=== PATIENT | male | born 1985 | race Caucasian/White ===

== ENCOUNTER 2016-12-29 18:15 | Emergency (ER) | payer MEDICARE, MEDICAID ==
[2016-12-29] MEDS ORDERED: NS 0.9% 1000 ML* 1,000 ML IV ONE (20:53)
[2016-12-29] MEDS ORDERED: Ondansetron INJ* 2 MG/ML VIAL IV ONE (20:53)
[2016-12-29 21:02] LABS: Hematocrit 40 % (42-52); Hemoglobin 13.2 g/dl (14.0-18.0); Mean Corpuscular HGB Conc 33 g/dl (31-36); Mean Corpuscular Hemoglobin 31 pg (27-31); Mean Corpuscular Volume 92 fL (80-94); Mean Platelet Volume 8 um3 (7.4-10.4); Red Cell Distribution Width 15 % (10.5-15); White Blood Count 11.8 10^3/ul (3.5-10.8)
[2016-12-29 21:13] LABS: Albumin 4.1 g/dL (3.2-5.2); Calcium 10.1 mg/dL (8.6-10.3); EGFR African American 430.3 (>60); EGFR Non-African American 334.6 (>60); Globulin 3.3 g/dL (2-4); Magnesium 2.1 mg/dL (1.9-2.7); Total Bilirubin 0.3 mg/dL (0.2-1.0); Total Protein 7.4 g/dL (6.4-8.9)
[2016-12-29 21:28] LABS: Urine Bilirubin Negative (Negative); Urine Glucose Negative (Negative); Urine Nitrite Negative (Negative)
[2016-12-29] MEDS: Al Hydrox/Mg Hydrox/Simet LIQ* 30 ML UDC PO ONE ×2 (21:42→21:49)
[2016-12-29] MEDS: Lidocaine 2% VISCOUS* 15 ML UDC PO ONE ×2 (21:42→21:49)
[2016-12-29] MEDS ORDERED: oxyCODONE/Acetamin 5/325 MG* TAB PO ONE (21:51)
[2016-12-29 22:10] VITALS: BP 135/87
== END 2016-12-29 22:09 | disposition home or self-care (01) ==
LOC: ED 18:15
DX: R10.9 Unspecified abdominal pain (principal)
CPT/HCPCS: 36415; 80053; 81003; 83690; 83735; 85025; 96361; 96374; 99283; A9270-GY; J2405

== ENCOUNTER 2017-03-24 17:25 | Emergency (ER) | payer MEDICARE, MEDICAID ==
--- NOTE | 2017-03-24 19:16 | ED ---
Psychiatric Complaint - HPI Summary HPI Summary: Pt here w/ anxiety and depression about progressively worsening chronic pain d/ t muscular dystrophy. He feels guilty about taking narcotics which worked well in the past but he stopped d/t stigma of taking it. Transitioned to suboxone which worked well but stopped because provider in [place] stopped rx'ing all of a sudden. He takes klonopin and clonidine for anxiety - feels they help each other work however some days he takes more klonopin than rx'd (rx'd 3mg daily PRN - he has taken up to 8mg). His acute anxiety presents as SOB, chest pain and extreme anger. He feels suicidal at times but states "I would never hurt my loved ones like that". Sx are exacerbated lately by insomnia and pt not eating - only drinking coffee - as again, he is depressed and anxious. Denies ab pain other than "hunger pain" at this time - offered food but he wants to continue to drink water and coffee only. MD pain presents in his spine and Rt hip - feels this was worsening at a pace of every other year, but in the past few years has been progressing q 8 months. 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 Quality of life is poor at this time, frustrated. Followed by Dr. Chambers - just received a pain rx for medical marijuana but admits he's tried someone else's before and it didn't work so has not filled this yet (was rx'd 02/21/2017). Linked w/ neurologist in [place]. Has tried multiple medications in the past but reports most of them make him feel drunk (ie. gabapentin, lyrica, etc) - doesn't want to feel drunk, fuzzy or unclear. Currently is not linked w/ psychiatric medicine. - History Of Current Complaint Chief Complaint: EDMentalHealth Time Seen by Provider: 03/24/17 18:11 Hx Obtained From: Patient, Family/Entry Level Manufacturing Engineer - father - Allergies/Home Medications Allergies/Adverse Reactions: Allergies Allergy/AdvReac Type Severity Reaction Status Date / Time No Known Allergies Allergy Verified 12/29/16 19:36 Home Medications: Home Medications Ibuprofen TAB* [Advil TAB*] 200 mg PO Q6H PRN 03/24/17 [History Confirmed ] cloNIDine TAB* [Catapres 0.1 MG TAB*] 0.1 mg PO TID 03/24/17 [History Confirmed 03/24/17] PMH/Surg Hx/FS Hx/Imm Hx Previously Healthy: No - progressively worsening muscular dystrophy Endocrine/Hematology History: Denies: Hx Anticoagulant Therapy, Hx Diabetes, Hx Thyroid Disease Cardiovascular History: Denies: Hx Congestive Heart Failure, Hx Hypertension, Hx Pacemaker/ICD Respiratory History: Denies: Hx Asthma, Hx Chronic Obstructive Pulmonary Disease (COPD) History: Denies: Hx Dialysis, Hx Renal Disease Musculoskeletal History: Reports: Hx Osteoporosis, Other Musculoskeletal History - MUSCULAR DYSTROPHY Sensory History: Denies: Hx Hearing Aid Neurological History: Denies: Hx Dementia, Hx Seizures Comment Only: Other Neuro Impairments/Disorders - MUSCL. DYST Psychiatric History: Denies: Hx Eating Disorder, Hx Panic Disorder, Hx Substance Abuse - Surgical History Surgery Procedure, Year, and Place: fx rt tib-fib with hardware 2010 - Immunization History Date of Tetanus Vaccine: PT STATES UNSURE Date of Influenza Vaccine: NONE Infectious Disease History: No Infectious Disease History: Denies: Hx Hepatitis, Hx Human Immunodeficiency Virus (HIV), Traveled Outside the [place] in Last 30 Days - Family History Known Family History: Positive: Diabetes, Other - depression - Social History Occupation: Disabled Alcohol Use: None Substance Use Type: Reports: Marijuana Substance Use Comment - Amount & Last Used: medical marijuana Hx Tobacco Use: Yes Smoking Status (MU): Current Every Day Smoker Review of Systems Positive: Fatigue. Negative: Fever, Chills ENT: Negative Cardiovascular: Negative Negative: Palpitations, Chest Pain Respiratory: Negative Negative: Shortness Of Breath, Cough Negative: Abdominal Pain, Vomiting, Diarrhea, Nausea Genitourinary: Negative Negative: burning, dysuria, frequency Musculoskeletal: Other - see HPI Skin: Negative Neurological: Other - see HPI Positive: Anxious - agitated but cooperative and polite Physical Exam Triage Information Reviewed: Yes Vital Signs On Initial Exam: Initial Vitals Temp Pulse Resp BP Pulse Ox 98.9 F 74 20 111/94 99 03/24/17 17:32 03/24/17 17:32 03/24/17 17:32 03/24/17 17:32 03/24/17 17:32 Vital Signs Reviewed: Yes Appearance: Positive: Pain Distress - pt is sitting on stretcher, leaning forward at times and to the side at other times - appears to have mildly slurred speech (admits he's taken more klonopin than directed today) - appears to be in mild to moderate pain, can't get comfortable Skin: Positive: Warm, Dry Head/Face: Positive: Normal Head/Face Inspection Eyes: Positive: Normal, EOMI ENT: Positive: Hearing grossly normal Neck: Positive: Supple Respiratory/Lung Sounds: Positive: Clear to Auscultation, Breath Sounds Present. Negative: Rales, Rhonchi, Wheezes Cardiovascular: Positive: Normal, RRR, S1, S2 Abdomen Description: Positive: Nontender, No Organomegaly, Soft Bowel Sounds: Positive: Present Musculoskeletal: Positive: Other - legs appear slender and pt does not move LE' s - moving torso and UE's well Neurological: Positive: Alert, Oriented to Person Place, Time, CN Intact II- III. Negative: Sensory/Motor Intact - LE's w/ limited ROM Psychiatric: Positive: Anxious - agitated but cooperative and polite - appears frustrated and to have good insight other than having guilt about taking medications to improve his quality of life - Sue Coma Scale Coma Scale Total: 15 Diagnostics - Vital Signs Vital Signs Temp Pulse Resp BP Pulse Ox 03/24/17 18:23 98.1 F 79 18 120/76 100 03/24/17 17:32 98.9 F 74 20 111/94 99 - Laboratory Result Diagrams: 03/24/17 19:55 03/24/17 19:55 Lab Statement: Any lab studies that have been ordered have been reviewed, and results considered in the medical decision making process. Course/Dx - Course Course Of Treatment: Pt here for Mh eval - frustrated w/ poor quality of life d/ t chronic pain from muscular dystrophy. Also has anxiety and depression. Has been tx'ing MH issues w/ clonidine and klonopin - taking more klonopin than rx' d to reduce anxiety which isn't helping. Admits to h/o taking narcotic pain meds which helped him function but stopped d/t stigma. Was on suboxone for a period as well and had a better quality of life then as well. His rx'er stopped rx'ing for unknown reasons and he's been simply dealing w/ the pain and anxiety since. Is not followed by psych currently. Seen by Dr. Addiosn for physical medicine and recently rx'd medical marijuana which he has not tried d/t failed attempt when trying a friend's in the past. Is here to establish w/ MH. He admits to SI at times but never a plan nor would he ever follow through. Denies HI. While here waiting for eval, he became agitated. Ordered valium which ..... - Differential Dx/Clinical Impression Provider Diagnosis: H/O muscular dystrophy, Chronic pain - Physician Notifications Discussed Care Of Patient With: business area manager
[2017-03-24 20:07] LABS: Hematocrit 42 % (42-52); Mean Corpuscular HGB Conc 33 g/dl (31-36); Mean Corpuscular Hemoglobin 32 pg (27-31); Mean Corpuscular Volume 95 fL (80-94); Mean Platelet Volume 8 um3 (7.4-10.4); Red Blood Count 4.43 10^6/ul (4.0-5.4); Red Cell Distribution Width 15 % (10.5-15); White Blood Count 10.3 10^3/ul (3.5-10.8)
[2017-03-24 20:11] LABS: Urine Bilirubin Negative (Negative); Urine Glucose Negative (Negative); Urine Nitrite Negative (Negative)
[2017-03-24 20:20] LABS: ALT 38 U/L (7-52); AST 27 U/L (13-39); Albumin 3.9 g/dL (3.2-5.2); Alkaline Phosphatase 71 U/L (34-104); Anion Gap 4 mmol/L (2-11); Blood Urea Nitrogen 13 mg/dL (6-24); CO2 Carbon Dioxide 26 mmol/L (22-32); Calcium 9.8 mg/dL (8.6-10.3); Chloride 107 mmol/L (101-111); EGFR African American 527.1 (>60); EGFR Non-African American 409.8 (>60); Globulin 3.1 g/dL (2-4); Glucose 97 mg/dL (70-100); Potassium 4.8 mmol/L (3.5-5.0); Sodium 137 mmol/L (133-145)
[2017-03-24 20:29] LABS: Benzodiazepine Urine Screen Presumptive Positive (None Detect)
[2017-03-24 20:36] LABS: Acetaminophen < 15 mcg/mL; Alcohol < 10 mg/dL (<10); Salicylate < 2.50 mg/dL (<30)
[2017-03-24 20:45] LABS: TSH (Thyroid Stimulating Horm) 1.17 mcIU/mL (0.34-5.60)
[2017-03-24 22:58] VITALS: BP 117/73
[2017-03-24] MEDS ORDERED: Diazepam TAB(*) 5 MG PO ONE (22:58)
[2017-03-24] MEDS ORDERED: Mouth Piece, Nicotine* 1 EACH CARTRIDGE INH PRN (23:46)
[2017-03-24] MEDS ORDERED: Nicotine Inhaler* 10 MG AMP INH ONE (23:46)
[2017-03-24] MEDS ORDERED: Mouth Piece, Nicotine* 1 EACH CARTRIDGE ONE (23:48)
[2017-03-25] MEDS ORDERED: Mouth Piece, Nicotine* 1 EACH CARTRIDGE INH ONE (02:00)
[2017-03-25] MEDS ORDERED: HYDROcodone/ACETAMIN 5-325 MG* 1 TAB PO ONE ×2 (02:23)
== END 2017-03-25 02:01 | disposition home or self-care (01) ==
LOC: ED 17:25
DX: G89.29 Other chronic pain (principal); R53.83 Other fatigue; F17.210 Nicotine dependence, cigarettes, uncomplicated
CPT/HCPCS: 36415; 80053; 80307; 80320; 80329; 81003; 84443; 85025; 99285; A9270-GY; G0480

== ENCOUNTER → 2017-04-19 14:04 | Emergency (ER) | payer MEDICARE, MEDICAID ==
--- NOTE | 2017-04-19 14:42 | ED ---
Psychiatric Complaint - HPI Summary HPI Summary: Patient presents to ED after being found unresponsive by his mother. He is altered on arrival and appears to have a decreased level of consciousness and stuporous. Difficult to arouse at home and difficulty keeping his eyes open during PE. He states he has drunk 3 drinks today, has taken his clonodine as prescribed and early this morning to help him sleep. He has also used his medical marijuana. When asked why he is fatigued, he states he does not sleep much at night. Denies HI. He states he feels suicidal all the time which has been present for years, but has not and will never act on those feelings. Denies previous attempts. Hx of depression and anxiety and ETOH abuse. He states he has been under increasing stress this year and has been drinking more heavily. Physical pain includes lower back pain, but refuses ibuprofen. - History Of Current Complaint Chief Complaint: EDMentalHealth Time Seen by Provider: 04/19/17 14:11 Hx Obtained From: Patient Onset/Duration: Gradual Onset Timing: Constant Severity Initially: Severe Severity Currently: Severe Character: Depressed, Anxious, Angry, Frustrated, Stuporous Aggravating Factor(s): Recent Stress, Therapy Non-compliance, Alcohol Use, Drug Use Alleviating Factor(s): Nothing Associated Signs And Symptoms: Positive: Hostile, Sleep Disturbance, Social Withdrawal, Social Isolation Has Suicidal: Reports: Thoughts - Risk Factor(s) Completed Suicide Risk Factors: Male, White [place] - Allergies/Home Medications Allergies/Adverse Reactions: Allergies Allergy/AdvReac Type Severity Reaction Status Date / Time No Known Allergies Allergy Verified 12/29/16 19:36 Home Medications: Home Medications clonazePAM TAB(*) [KlonoPIN TAB(*)] 2 mg PO QPM MDD 3 mg 04/19/17 [History Confirmed 04/19/17] PMH/Surg Hx/FS Hx/Imm Hx Previously Healthy: Yes Endocrine/Hematology History: Denies: Hx Anticoagulant Therapy, Hx Diabetes, Hx Thyroid Disease Cardiovascular History: Denies: Hx Congestive Heart Failure, Hx Hypertension, Hx Pacemaker/ICD Respiratory History: Denies: Hx Asthma, Hx Chronic Obstructive Pulmonary Disease (COPD) History: Denies: Hx Dialysis, Hx Renal Disease Musculoskeletal History: Reports: Hx Osteoporosis, Other Musculoskeletal History - MUSCULAR DYSTROPHY Sensory History: Denies: Hx Hearing Aid Neurological History: Denies: Hx Dementia, Hx Seizures Comment Only: Other Neuro Impairments/Disorders - MUSCL. DYST Psychiatric History: Denies: Hx Eating Disorder, Hx Panic Disorder, Hx of Violent Episodes Against Others, Hx Substance Abuse - Surgical History Surgery Procedure, Year, and Place: fx rt tib-fib with hardware 2010 - Immunization History Date of Tetanus Vaccine: PT STATES UNSURE Date of Influenza Vaccine: NONE Infectious Disease History: Yes Infectious Disease History: Denies: Hx Hepatitis, Hx Human Immunodeficiency Virus (HIV), Traveled Outside the [place] in Last 30 Days - Family History Known Family History: Positive: Diabetes, Other - depression - Social History Occupation: Unemployed Lives: With Family Alcohol Use: Multiple drinks today Hx Substance Use: Yes Substance Use Type: Reports: Marijuana Substance Use Comment - Amount & Last Used: medical marijuana Hx Tobacco Use: Yes Smoking Status (MU): Current Every Day Smoker Review of Systems Constitutional: Negative Eyes: Negative Cardiovascular: Negative Respiratory: Negative Positive: no symptoms reported, see HPI Positive: Arthralgia, Myalgia Positive: Slurred Speech Positive: Anxious, Depressed All Other Systems Reviewed And Are Negative: Yes Physical Exam Triage Information Reviewed: Yes Vital Signs On Initial Exam: Initial Vitals Temp Pulse Resp BP Pulse Ox 98.2 F 118 12 117/89 99 04/19/17 14:18 04/19/17 14:18 04/19/17 14:18 04/19/17 14:18 04/19/17 14:18 Vital Signs Reviewed: Yes Appearance: Positive: Well-Appearing, Well-Nourished Skin: Positive: Warm, Skin Color Reflects Adequate Perfusion Head/Face: Positive: Normal Head/Face Inspection Eyes: Positive: EOMI, DENISA, Conjunctiva Clear Neck: Positive: Supple, No Lymphadenopathy Respiratory/Lung Sounds: Positive: Clear to Auscultation, Breath Sounds Present Cardiovascular: Positive: RRR, Pulses are Symmetrical in both Upper and Lower Extremities Neurological: Positive: Slurred Speech, Facial Symmetry, Other - oriented to person, place, but not to time or date - [place] Coma Scale Best Eye Response: 3 - To Speech Best Motor Response: 5 - Purposeful Movement Best Verbal Response: 4 - Confused Coma Scale Total: 14 Diagnostics - Vital Signs Vital Signs Temp Pulse Resp BP Pulse Ox 04/19/17 14:18 98.2 F 118 12 117/89 99 - Laboratory Result Diagrams: 04/19/17 14:50 04/19/17 14:50 Lab Statement: Any lab studies that have been ordered have been reviewed, and results considered in the medical decision making process. Course/Dx - Course Course Of Treatment: oriented to person, place, but not to time or date - patient is ready for MHU. High WBC for unknown reason. Obtained a UA and Xray with no obvious cause of leukocytosis. Possible reaction from acute rebound hypoxia after being found unresponsive. Will await M[facility] and evaluate if symptoms become worse and assess further. - Differential Dx/Clinical Impression Provider Diagnosis: Klonopin use disorder, mild, abuse Discharge - Discharge Plan Condition: Stable Disposition: HOME Discharge Disposition Comment: encouraged to attend [facility] alcohol counseling Referrals: [facility], [facility] [Other] - As Soon As Possible (Call to schedule an appointment as soon as possible) [facility] [Outside] - As Soon As Possible Kendal King, DOPE EDGER [Primary Care Provider] - As Soon As Possible (Follow up to speak about needs for better pain control)
[2017-04-19 15:03] LABS: Hematocrit 42 % (42-52); Hemoglobin 13.7 g/dl (14.0-18.0); Mean Corpuscular HGB Conc 33 g/dl (31-36); Mean Corpuscular Hemoglobin 31 pg (27-31); Mean Corpuscular Volume 94 fL (80-94); Mean Platelet Volume 8 um3 (7.4-10.4); Red Blood Count 4.43 10^6/ul (4.0-5.4); Red Cell Distribution Width 16 % (10.5-15); White Blood Count 21.5 10^3/ul (3.5-10.8)
[2017-04-19 15:20] LABS: ALT 32 U/L (7-52); AST 43 U/L (13-39); Albumin 4.1 g/dL (3.2-5.2); Alkaline Phosphatase 82 U/L (34-104); Anion Gap 7 mmol/L (2-11); BUN/Creatinine Ratio 38.2 (8-20); Blood Urea Nitrogen 13 mg/dL (6-24); CO2 Carbon Dioxide 26 mmol/L (22-32); Chloride 106 mmol/L (101-111); EGFR African American 386.7 (>60); EGFR Non-African American 300.7 (>60); Globulin 3.3 g/dL (2-4); Glucose 150 mg/dL (70-100); Potassium 3.5 mmol/L (3.5-5.0); Sodium 139 mmol/L (133-145); Total Protein 7.4 g/dL (6.4-8.9)
[2017-04-19 15:43] LABS: Acetaminophen < 15 mcg/mL; Alcohol < 10 mg/dL (<10); Salicylate < 2.50 mg/dL (<30)
[2017-04-19 15:50] LABS: TSH (Thyroid Stimulating Horm) 1.76 mcIU/mL (0.34-5.60)
--- NOTE | 2017-04-19 16:40 | RAD ---
INDICATION: Abnormal labs, cough. COMPARISON: Comparison is made with prior chest x-ray study from November 09, 2007. TECHNIQUE: A portable view of the chest was obtained. FINDINGS: Cardiac and mediastinal contours appear to be within normal limits. The lungs are underinflated and clear. No pleural effusion is seen. There is mild gastric distention. IMPRESSION: NO EVIDENCE FOR ACUTE DISEASE.
[2017-04-19 16:54] LABS: Urine Bacteria Absent (Absent); Urine Bilirubin Negative (Negative); Urine Glucose 1+(50 mg/dL) (Negative); Urine Nitrite Negative (Negative)
[2017-04-19 17:06] LABS: Benzodiazepine Urine Screen Presumptive Positive (None Detect)
[2017-04-19 18:16] LABS: C Reactive Protein 1.42 mg/L (< 5.00)
[2017-04-19 19:31] VITALS: BP 137/99
--- NOTE | 2017-04-19 21:25 | ED ---
Progress - Progress Note Progress Note: Pt d/c'd per MH. He has chronically elevated WBC's - lactic acid and CRP are WNL. No s/sx of infection clinically or in urine/chest. D/c'd w/o medical concern. Advised f/u w/ PCP if develops s/sx of illness. Stable, alert and oriented at time of d/c. - Consult/PCP Time Called: 17:10 Course/Dx - Course Course Of Treatment: oriented to person, place, but not to time or date - patient is ready for MHU. - Diagnoses Provider Diagnoses: Klonopin use disorder, mild, abuse
== END | disposition home or self-care (01) ==
LOC: ED 14:04
DX: F41.9 Anxiety disorder, unspecified (principal); F32.9 Major depressive disorder, single episode, unspecified; F17.210 Nicotine dependence, cigarettes, uncomplicated
CPT/HCPCS: 36415; 71010; 80053; 80307; 80320; 80329; 81003; 81015; 83605; 84443; 85025; 86140; 99285; G0480

== ENCOUNTER 2017-12-19 00:55 | Emergency (ER) | payer MEDICARE, MEDICAID ==
--- OUTSIDE RECORDS SUMMARY | 2017-12-19 01:08 | XMS REPORT ---
:1985 External Reference #:[id number] Author Organization [facility] Address [address] [place] [address] Phone [phone] Care Team Providers Name Role Phone Kendal King TRAINING TECHNICIAN Primary Care Physician Unavailable Payers Type Date Identification Numbers Payment Provider Subscriber Medicare Primary Policy Number: [id number] Medicare - Bswny Belen Damico Umd PayID: [id number] [address] [place] [address] [facility] Policy Number: [id number] Medicaid After Medicare Belen Damico Group Name: 2 1 [address] PayID: [id number] [place] [address] Problems Date Description Provider Status Onset: 02/28/2014 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 Active Onset: 02/28/2014 Depressive disorder Mayelin Gardiner M.D. Active Onset: 02/28/2014 Generalized anxiety disorder Mayelin Gardiner M.D. Active Onset: 02/28/2014 Osteoporosis Mayelin Gardiner M.D. Active Onset: 02/28/2014 Cigarette smoker Mayelin Gardiner M.D. Active Onset: 06/27/2015 Muscular dystrophy Shawnti R. Storm, [facility] [facility]-C Active Family History Date Family Member(s) Problem(s) Comments Father Healthy Mother Healthy First Brother Healthy Second Brother Healthy Social History Type Date Description Comments Lives With Mother And Father Work Status Not Currently Working Cigarette Use currently smokes 1/2 Pack Daily ETOH Use Denies alcohol use Smoking Patient is a current smoker, smokes every day Allergies, Adverse Reactions, Alerts Date Description Reaction Status Severity Comments 02/28/2014 NKDA active Medications Medication Date Status Form Strength Qnty SIG Indications Ordering Provider Fentanyl 11/09 Active Patches 72HR 75mcg/HR 15uni apply one Shawnti R. ts patch to Storm, skin, VEST BASTER-C replace every other day Fentanyl 11/09 Active Patches 72HR 12mcg/HR 15uni apply 1 Bryanna ts patch P. Blegen, every M.D. other day as directed for pain- in addition to 75 mcg patch Tolterodine 10/14 Active Caps ER 24HR 4mg 90cap 1 by mouth N39.41 Shawnti R. Tartrate /2017 s every day Storm, [facility]-C Oxycodone HCL 08/12 Active Tablets 5mg 30tab 1 tab by G89.4 Shawnti R. s mouth q6hr Storm, as needed [facility] pain Tegaderm Film 07/14 Active Misc 15uni use to G89.4 Shawnti R. ts cover Storm, Dress/First Aid fentanyl [employer] [facility]-C Style 4"X4-3/4" patch Silvadene 06/13 Active Cream 1% 20gm apply to T23.011A Shawnti R. burn 2 or Storm, 3 times [facility] [facility]-C daily Clonidine HCL 08/23 Active Tablets 0.1mg 90tab take one F41.9 Shawnti R. /2015 s tablet by Storm, mouth [employer]-C three times daily if needed Clonazepam 04/16 Active Tablets 1mg 90tab take one F41.9 Shawnti R. /2015 s tab in the Storm, morning [employer] [facility]ER-C and two at night Multi Vitamin 02/28 Active Tablets Mayelin Joe Gardiner M.D. Vitamin D3 Active Capsules 2000Unit daily one Unknown Super Strength /0000 by mouth Fish Oil 00 Active Capsules 500mg one daily Unknown /0000 Fentanyl 11/04 Hx Patches 72HR 87.5mcg/H 15uni apply one G89.4 Shawnti R. R ts patch to Storm, - skin every [employer] BASTER-C 11/09 other day /2017 Fentanyl 10/14 Hx Patches 72HR 75mcg/HR 15uni apply one G89.4 Shawnti R. ts to skin, Storm, - change [facility]-C 11/04 every other day Tolterodine 08/12 Hx Caps ER 24HR 2mg 30cap 1 po daily N39.41 Shawnti R. Tartrate ER /2016 s for urine Storm, - VEST BASTER-C 10/14 Fentanyl 06/06 Hx Patches 72HR 50mcg/HR 15uni apply one G89.4 Shawnti R. ts patch to Storm, - skin, [facility] BASTER-C 10/14 change every other day for chronic pain Fentanyl 05/02 Hx Patches 72HR 25mcg/HR 15uni apply one G89.4 Shawnti R. ts patch to Storm, - skin, [facility] [facility]-C 06/06 change every Two days Fentanyl 04/28 Hx Patches 72HR 12mcg/HR 5unit apply G89.4 Shawnti R. s patch Storm, - every 3 [facility] [facility]ER-C 05/02 days directed for pain relief Nabumetone 03/29 Hx Tablets 750mg 14tab 2 tabs by G89.4 Franky s mouth once Juan - daily III, VEST BASTER-C 05/12 Oxycodone HCL 03/29 Hx Tablets 10mg 28tab take 1 G89.4 Franky s tablet by Juan - mouth III, VEST BASTER-C 04/28 every hours as needed for severe pain. Buspirone HCL 04/16 Hx Tablets 10mg 90tab 1 by mouth F41.9 Shawnti R. /2015 s three Storm, - times [facility] B[employer]ER-C 08/23 daily for anxiety Propranolol HCL 03/24 Hx Tablets 10mg 90tab 1 tab by F41.9 Epi /2015 s mouth Heetfaraz, - three MD 04/16 times a day as needed for anxiety Elavil 03/24 Hx Tablets 25mg 30tab 1 tab by F41.9 Epi /2015 s mouth Heetderks, - every MD 04/16 night Levofloxacin 12/04 Hx Tablets 750mg 7tabs 1 by mouth J18.9 Shawnti R. /2015 daily for Storm, - 7 days for [facility] [facility]ER-C 01/19 pneumonia Fentanyl 09/25 Hx Patches 72HR 75mcg/HR 7unit apply to G89.4 Shawnti R. s skin, Storm, - change [facility]-C 03/18 every hours Clonazepam 09/25 Hx Tablets 0.5mg 28tab 1 by mouth F41.9 Shawnti R. s twice a Storm, - day for [facility] BASTER-C 04/16 anxiety Fentanyl 09/11 Hx Patches 72HR 12mcg/HR 7unit apply to G89.4 Shawnti R. s skin Storm, - change VEST BASTER-C 09/25 every days if needed with 50mcg patch Proctocort 09/11 Hx Suppository 30mg 12uni insert one K64.9 Shawnti R. ts into Storm, - rectum as VEST BASTER-C 01/27 needed for hemorrhoid s Clonidine HCL 07/18 Hx Tablets 0.1mg take one Shawnti R. or 2 Storm, - tablet by VEST BASTER-C 08/21 mouth times a day as needed for stress and anxiety Fentanyl 07/18 Hx Patches 72HR 50mcg/HR 7unit apply to G89.4 Shawnti R. s skin and Storm, - replace VEST BASTER-C 09/25 every hours. Fentanyl 07/11 Hx Patches 72HR 50mcg/HR 5unit apply to G89.4 Shawnti R. s skin and Storm, - replace VEST BASTER-C 07/18 every hours. Ergocalciferol 06/30 Hx Capsules [id number] 8caps 1 by mouth Shawnti R. twice Storm, - weekly for VEST BASTER-C 07/30 one Fentanyl 06/27 Hx Patches 72HR 75mcg/HR 5unit apply to G89.4 Shawnti R. s skin, Storm, - change VEST BASTER-C 07/11 every hours Clonidine HCL 06/27 Hx Tablets 0.2mg 60tab take one s tablet by Storm, - mouth 3 VEST BASTER-C 07/18 times daily if needed for anxiety Fentanyl 04/28 Hx Patches 72HR 75mcg/HR 3unit apply to 338.4 nti s skin, Storm, - change VEST BASTER-C 05/08 every hours Oxycodone HCL 10/28 Hx Tablets 10mg 30thi 1 [facility] mouth q4hr Storm, - as needed [facility] [facility]-C 06/27 severe pain Fentanyl 09/09 Hx Patches 72HR 50mcg/HR 3thre apply to 359.0 [place] e skin, Storm, - change [facility]ST BASTER-C 06/27 three days Bupropion HCL 07/08 Hx Tablets 75mg 30tab 1 by mouth s every day Joe Gardiner, - at noon. M.DKatarzyna 09/09 Add to morning Wellbutrin dose of 150 mg in the morning. Proctosol HC 05/02 Hx Cream 2.5% 28.35 Use as 455.0 Mayelin /2014 0gm directed Joe Gardiner, - twice M.D. 10/21 daily to the affected area. Miralax 05/02 Hx Powder [id number] 1Bott use one 455.0 Mayelin /2014 le capful of Joe Gardiner, - powder in M.D. 06/06 8 oz of fluids Dicyclomine HCL 05/02 Hx Tablets 20mg 60tab take one 569.42 Mayelin s tablet by Joe Gardiner, - mouth M.D. 09/09 every hours as needed Silvadene 03/18 Hx Cream 1% 85gm place a thick Joe Gardiner, - layer of M.D. 09/09 silvadene to the affected area twice daily and then cover with guaze Sulfamethoxazol 03/11 Hx Tablets 800-160mg 20tab use one 682.9 Mayelin e/Trimethoprim s tablet by Joe Gardiner, DS - mouth M.D. 03/18 twice a day Prilosec OTC 02/[address] 20mg 30tab 1 by mouth Mayelin s qd-ac for Joe Gardiner, - stomach M.D. 06/27 acid taking ibuprofen Alendronate 02/28 Hx Tablets 70mg 12tab take one Mayelin Sodium s tablet Joe Gardiner, - weekly M.D. 06/27 Bupropion HCL 02/28 Hx Tablets ER 150mg 30tab take one Ney ER (XL) 24HR s tablet by Zoey, - mouth M.D. 04/28 morning Aspirin 02/28 Hx Chewtabs 81mg daily Mayelin [facility] Joe Gardiner, - M.D. 10/21 Oxycodone HCL 02/28 Hx Tablets 10mg 120hn 1 by mouth Shawnti R. drdtw 4 times Fernando, - nt daily if VEST BASTER-C 10/28 needed breakthrou gh pain Seroquel XR 00 Hx Tablets ER 50mg Monica, /0000 24HR MD Deisi - 04/28 Fentanyl 0000 Hx Patches 72HR 25mcg/HR 10uni apply to 359.0 Mayelin /0000 ts the skin Joe Gardiner, - and change M.D. 09/09 every hours Clonazepam Hx Tablets 0.5mg 90tab take one Shawnti R. /0000 s tablet by Fernando, - mouth VEST BASTER-C 08/21 times daily Oxycodone HCL 00 Hx Tablets 5mg Varn,Julianne /0000 nn - 02/28 Suboxone 00/00 Hx Film 8-2mg Unknown /0000 - 08/23 Suboxone 00/00 Hx Film 8-2mg daily and Unknown /0000 09/06 dose - at hs 01/27 Immunizations CPT Code Status Date Vaccine Lot # [id number] Given 05/12/2017 Influenza Virus Vaccine, Quadrivalent, 3 Yr > [id number] Quad, Preserv Free [id number] Given 05/12/2017 Prevnar-13 Pneumococcal Conjugate Vaccine [id number] Given 05/12/2016 Influenza Virus Vaccine, Quadrivalent, 3 Yr > Quad, Preserv Free 68897 Given 06/10/2014 Influenza Virus Vaccine, Quadrivalent, 3 Yr > [id number] Quad, Preserv Free 05859 Given 06/04/2013 Influenza Vaccine-Preservative Free 3 Yrs And Above [id number] Given 11/19/2008 Tdap (Adacel) Vital Signs Date Vital Result Comment 12/02/2017 BP Systolic 132 mmHg BP Diastolic 76 mmHg Heart Rate 80 /min Body Temperature 99.2 F Respiratory Rate 20 /min 11/04/2017 BP Systolic 110 mmHg BP Diastolic 62 mmHg Heart Rate 80 /min Body Temperature 99.2 F Respiratory Rate 16 /min O2 % BldC Oximetry 98 % 10/14/2017 Weight 175.00 lb stated by patient Weight in kg's 79.380 BP Systolic 102 mmHg BP Diastolic 60 mmHg Heart Rate 80 /min Body Temperature 98.3 F Respiratory Rate 18 /min Height 72 inches stated by patient BMI (Body Mass Index) 23.7 kg/m2 O2 % BldC Oximetry 98 % 08/12/2017 BP Systolic 120 mmHg BP Diastolic 80 mmHg Heart Rate 82 /min Body Temperature 98.8 F Respiratory Rate 14 /min O2 % BldC Oximetry 99 % 07/14/2017 BP Systolic 122 mmHg BP Diastolic 62 mmHg Heart Rate 95 /min Body Temperature 98.8 F O2 % BldC Oximetry 99 % 06/13/2017 BP Systolic 120 mmHg BP Diastolic 80 mmHg Heart Rate 100 /min Body Temperature 98.6 F Respiratory Rate 16 /min 06/06/2017 BP Systolic 150 mmHg BP Diastolic 100 mmHg Heart Rate 128 /min Body Temperature 98.9 F O2 % BldC Oximetry 99 % 05/12/2017 BP Systolic 120 mmHg BP Diastolic 80 mmHg Heart Rate 88 /min Body Temperature 98.9 F Respiratory Rate 14 /min 04/28/2017 BP Systolic 148 mmHg BP Diastolic 86 mmHg Heart Rate 108 /min Body Temperature 98.5 F Respiratory Rate 20 /min O2 % BldC Oximetry 99 % 04/04/2017 BP Systolic 128 mmHg BP Diastolic 84 mmHg Heart Rate 120 /min Body Temperature 99.3 F Respiratory Rate 20 /min O2 % BldC Oximetry 99 % 03/29/2017 BP Systolic 134 mmHg BP Diastolic 96 mmHg Heart Rate 124 /min Body Temperature 98.5 F Respiratory Rate 24 /min O2 % BldC Oximetry 98 % 01/27/2017 BP Systolic 104 mmHg BP Diastolic 70 mmHg Heart Rate 100 /min Body Temperature 98.1 F Respiratory Rate 14 /min O2 % BldC Oximetry 98 % 01/03/2017 BP Systolic 120 mmHg BP Diastolic 70 mmHg Heart Rate 80 /min Body Temperature 98.3 F Respiratory Rate 20 /min 10/21/2016 BP Systolic 124 mmHg BP Diastolic 78 mmHg Heart Rate 91 /min Body Temperature 98.8 F Respiratory Rate 16 /min O2 % BldC Oximetry 98 % 08/23/2016 BP Systolic 140 mmHg BP Diastolic 88 mmHg Heart Rate 84 /min Body Temperature 99.7 F Respiratory Rate 16 /min 05/17/2016 BP Systolic 120 mmHg BP Diastolic 78 mmHg Heart Rate 80 /min Body Temperature 98.6 F Respiratory Rate 12 /min 04/16/2016 BP Systolic 130 mmHg BP Diastolic 80 mmHg Heart Rate 104 /min O2 % BldC Oximetry 98 % 03/24/2016 BP Systolic 132 mmHg BP Diastolic 80 mmHg Heart Rate 80 /min Body Temperature 98.6 F Respiratory Rate 20 /min 02/26/2016 BP Systolic 142 mmHg BP Diastolic 79 mmHg Heart Rate 104 /min O2 % BldC Oximetry 98 % 01/20/2016 Weight 136.[address] Chambers 3 wks ago Weight in kg's 61.690 BP Systolic 134 mmHg BP Diastolic 80 mmHg Heart Rate 93 /min Body Temperature 98.8 F Height 72 inches 6'0" According To PT BMI (Body Mass Index) 18.4 kg/m2 O2 % BldC Oximetry 99 % 12/15/2015 BP Systolic 124 mmHg BP Diastolic 70 mmHg Heart Rate 90 /min 12/05/2015 BP Systolic 102 mmHg BP Diastolic 70 mmHg Heart Rate 121 /min Body Temperature 101.8 F O2 % BldC Oximetry 98 % 11/07/2015 BP Systolic 124 mmHg BP Diastolic 70 mmHg Heart Rate 88 /min 10/09/2015 BP Systolic 136 mmHg BP Diastolic 84 mmHg Heart Rate 90 /min 09/25/2015 BP Systolic 138 mmHg BP Diastolic 86 mmHg Heart Rate 94 /min 09/11/2015 BP Systolic 140 mmHg BP Diastolic 80 mmHg Heart Rate 96 /min 08/21/2015 BP Systolic 130 mmHg BP Diastolic 70 mmHg Heart Rate 92 /min 08/05/2015 BP Systolic 120 mmHg BP Diastolic 80 mmHg Heart Rate 60 /min 07/18/2015 BP Systolic 160 mmHg BP Diastolic 100 mmHg Heart Rate 112 /min 07/11/2015 BP Systolic 110 mmHg BP Diastolic 78 mmHg Heart Rate 52 /min 06/27/2015 BP Systolic 118 mmHg BP Diastolic 74 mmHg Heart Rate 100 /min Body Temperature 98.1 F O2 % BldC Oximetry 98 % 04/28/2015 BP Systolic 130 mmHg BP Diastolic 80 mmHg Heart Rate 96 /min 02/03/2015 BP Systolic 140 mmHg BP Diastolic 74 mmHg Heart Rate 80 /min 10/28/2014 BP Systolic 120 mmHg BP Diastolic 70 mmHg Heart Rate 108 /min 09/09/2014 BP Systolic 134 mmHg BP Diastolic 92 mmHg Heart Rate 106 /min Body Temperature 98.0 F 08/26/2014 BP Systolic 144 mmHg BP Diastolic 86 mmHg Heart Rate 95 /min O2 % BldC Oximetry 98 % 07/08/2014 BP Systolic 118 mmHg BP Diastolic 80 mmHg Heart Rate 100 /min 06/10/2014 BP Systolic 120 mmHg BP Diastolic 80 mmHg Heart Rate 68 /min 05/02/2014 BP Systolic 124 mmHg BP Diastolic 80 mmHg Heart Rate 80 /min 03/28/2014 BP Systolic 126 mmHg BP Diastolic 76 mmHg Heart Rate 76 /min Body Temperature 98.4 F 03/18/2014 BP Systolic 118 mmHg BP Diastolic 64 mmHg Heart Rate 84 /min Body Temperature 98.7 F 03/11/2014 BP Systolic 120 mmHg BP Diastolic 80 mmHg Heart Rate 76 /min Body Temperature 99.3 F 02/28/2014 BP Systolic 128 mmHg BP Diastolic 84 mmHg Heart Rate 100 /min O2 % BldC Oximetry 98 % Results Test Date Test Result H/L Range Note Laboratory test finding 04/19/2017 C Reactive Protein 1.42 mg/L < 5.00 1 Urinalysis Profile 04/19/2017 Urine Color Yellow Urine Appearance Cloudy Urine Specific [place] 1.016 1.010-1.030 Urine pH 5.0 5-9 Urine Urobilinogen Negative Negative Urine Ketones Negative Negative Urine Protein 1+(30 mg/dL) Negative Urine Leukocytes Negative Negative Urine Blood Negative Negative Urine Nitrite Negative Negative Urine Bilirubin Negative Negative Urine Glucose 1+(50 mg/dL) Negative Urine White Blood Cell Absent Absent Urine Red Blood Cell Absent Absent Urine Bacteria Absent Absent Urine Squamous Epithelial Cell Present Absent Urine Hyaline Casts Present Absent Urine Drug SCR ED 04/19/2017 Amphetamine Ur Screen None Detected None Detect & Pain Clinic Barbiturates Urine Screen None Detected None Detect Benzodiazepine Urine Screen Presumptive Posi <SEE NOTE> None Detect 2 Urine Cannabinoids Screen Presumptive Posi <SEE NOTE> None Detect 3 Urine Cocaine Screen None Detected None Detect Urine Opiates Screen Presumptive Posi <SEE NOTE> None Detect 4 Urine Phencyclidine Screen None Detected None Detect 5 Laboratory test finding 04/19/2017 Acetaminophen < 15 g/mL 6 Alcohol < 10 mg/dL <10 Salicylate < 2.50 mg/dL <30 TSH (Thyroid Stimulating Horm) 1.76 mcIU/mL 0.34-5.60 Comp Metabolic Panel 04/19/2017 Sodium 139 mmol/L 133-145 Potassium 3.5 mmol/L 3.5-5.0 Chloride 106 mmol/L 101-111 Co2 Carbon Dioxide 26 mmol/L 22-32 Anion Gap 7 mmol/L 2-11 Glucose 150 mg/dL High 70-100 Blood Urea Nitrogen 13 mg/dL 6-24 Creatinine 0.34 mg/dL Low 0.67-1.17 BUN/Creatinine Ratio 38.2 High 8-20 Calcium 9.0 mg/dL 8.6-10.3 Total Protein 7.4 g/dL 6.4-8.9 Albumin 4.1 g/dL 3.2-5.2 Globulin 3.3 g/dL 2-4 Albumin/Globulin Ratio 1.2 1-3 Total Bilirubin 0.20 mg/dL 0.2-1.0 Alkaline Phosphatase 82 U/L 34-104 Alt 32 U/L 7-52 Ast 43 U/L High 13-39 Egfr Non- 300.7 >60 Egfr 386.7 >60 7 CBC Auto Diff 04/19/2017 White Blood Count 21.5 10^3/uL High 3.5-10.8 Red Blood Count 4.43 10^6/uL 4.0-5.4 Hemoglobin 13.7 g/dL Low 14.0-18.0 Hematocrit 42 % 42-52 Mean Corpuscular Volume 94 fL 80-94 Mean Corpuscular Hemoglobin 31 pg 27-31 Mean Corpuscular HGB Conc 33 g/dL 31-36 Red Cell Distribution Width 16 % High 10.5-15 Platelet Count 303 10^3/uL 150-450 Mean Platelet Volume 8 um3 7.4-10.4 Abs Neutrophils 17.8 10^3/uL High 1.5-7.7 Abs Lymphocytes 2.4 10^3/uL 1.0-4.8 Abs Monocytes 1.1 10^3/uL High 0-0.8 Abs Eosinophils 0.1 10^3/uL 0-0.6 Abs Basophils 0.2 10^3/uL 0-0.2 Abs Nucleated RBC 0.01 10^3/uL Granulocyte % 83.0 % 38-83 Lymphocyte % 11.0 % Low 25-47 Monocyte % 5.0 % 1-9 Eosinophil % 0.2 % 0-6 Basophil % 0.8 % 0-2 Nucleated Red Blood Cells % 0 Laboratory test finding 04/19/2017 Lactic Acid 0.8 mmol/L 0.5-2.0 8 CBC Auto Diff 03/24/2017 White Blood Count 10.3 10^3/uL 3.5-10.8 Red Blood Count 4.43 10^6/uL 4.0-5.4 Hemoglobin 14.0 g/dL 14.0-18.0 Hematocrit 42 % 42-52 Mean Corpuscular Volume 95 fL High 80-94 Mean Corpuscular Hemoglobin 32 pg High 27-31 Mean Corpuscular HGB Conc 33 g/dL 31-36 Red Cell Distribution Width 15 % 10.5-15 Platelet Count 292 10^3/uL 150-450 Mean Platelet Volume 8 um3 7.4-10.4 Abs Neutrophils 5.5 10^3/uL 1.5-7.7 Abs Lymphocytes 3.5 10^3/uL 1.0-4.8 Abs Monocytes 0.9 10^3/uL High 0-0.8 Abs Eosinophils 0.3 10^3/uL 0-0.6 Abs Basophils 0.1 10^3/uL 0-0.2 Abs Nucleated RBC 0.01 10^3/uL Granulocyte % 53.7 % 38-83 Lymphocyte % 34.1 % 25-47 Monocyte % 8.9 % 1-9 Eosinophil % 2.5 % 0-6 Basophil % 0.8 % 0-2 Nucleated Red Blood Cells % 0.1 Urinalysis Profile 03/24/2017 Urine Color Yellow Urine Appearance Cloudy Urine Specific [place] 1.009 Low 1.010-1.030 Urine pH 8.0 5-9 Urine Urobilinogen Negative Negative Urine Ketones Negative Negative Urine Protein Negative Negative Urine Leukocytes Negative Negative Urine Blood Negative Negative Urine Nitrite Negative Negative Urine Bilirubin Negative Negative Urine Glucose Negative Negative Urine Drug SCR ED 03/24/2017 Amphetamine Ur Screen None Detected None Detect & Pain Clinic Barbiturates Urine Screen None Detected None Detect Benzodiazepine Urine Screen Presumptive Posi <SEE NOTE> None Detect 9 Urine Cannabinoids Screen Presumptive Posi <SEE NOTE> None Detect 10 Urine Cocaine Screen None Detected None Detect Urine Opiates Screen None Detected None Detect Urine Phencyclidine Screen None Detected None Detect 11 Comp Metabolic Panel 03/24/2017 Sodium 137 mmol/L 133-145 Potassium 4.8 mmol/L 3.5-5.0 Chloride 107 mmol/L 101-111 Co2 Carbon Dioxide 26 mmol/L 22-32 Anion Gap 4 mmol/L 2-11 Glucose 97 mg/dL 70-100 Blood Urea Nitrogen 13 mg/dL 6-24 Creatinine 0.26 mg/dL Low 0.67-1.17 BUN/Creatinine Ratio 50.0 High 8-20 Calcium 9.8 mg/dL 8.6-10.3 Total Protein 7.0 g/dL 6.4-8.9 Albumin 3.9 g/dL 3.2-5.2 Globulin 3.1 g/dL 2-4 Albumin/Globulin Ratio 1.3 1-3 Total Bilirubin 0.30 mg/dL 0.2-1.0 Alkaline Phosphatase 71 U/L 34-104 Alt 38 U/L 7-52 Ast 27 U/L 13-39 Egfr Non- 409.8 >60 Egfr 527.1 >60 12 Laboratory test finding 03/24/2017 Acetaminophen < 15 g/mL 13 Alcohol < 10 mg/dL <10 Salicylate < 2.50 mg/dL <30 TSH (Thyroid Stimulating Horm) 1.17 mcIU/mL 0.34-5.60 CBC Auto Diff 01/11/2017 White Blood Count 13.1 10^3/uL High 3.5-10.8 Red Blood Count 5.02 10^6/uL 4.0-5.4 Hemoglobin 15.3 g/dL 14.0-18.0 Hematocrit 46 % 42-52 Mean Corpuscular Volume 92 fL 80-94 Mean Corpuscular Hemoglobin 31 pg 27-31 Mean Corpuscular HGB Conc 33 g/dL 31-36 Red Cell Distribution Width 15 % 10.5-15 Platelet Count 336 10^3/uL 150-450 Mean Platelet Volume 8 um3 7.4-10.4 Abs Neutrophils 9.3 10^3/uL High 1.5-7.7 Abs Lymphocytes 2.8 10^3/uL 1.0-4.8 Abs Monocytes 0.9 10^3/uL High 0-0.8 Abs Eosinophils 0 10^3/uL 0-0.6 Abs Basophils 0.1 10^3/uL 0-0.2 Abs Nucleated RBC 0 10^3/uL Granulocyte % 71.4 % 38-83 Lymphocyte % 21.3 % Low 25-47 Monocyte % 6.7 % 1-9 Eosinophil % 0 % 0-6 Basophil % 0.6 % 0-2 Nucleated Red Blood Cells % 0 Laboratory test finding 01/11/2017 Lactic Acid 1.1 mmol/L 0.5-2.0 14 Comp Metabolic Panel 01/11/2017 Sodium 141 mmol/L 133-145 Potassium 3.1 mmol/L Low 3.5-5.0 Chloride 103 mmol/L 101-111 Co2 Carbon Dioxide 16 mmol/L Low 22-32 Anion Gap 22 mmol/L High 2-11 Glucose 86 mg/dL 70-100 Blood Urea Nitrogen 7 mg/dL 6-24 Creatinine 0.39 mg/dL Low 0.67-1.17 BUN/Creatinine Ratio 17.9 8-20 Calcium 10.7 mg/dL High 8.6-10.3 Total Protein 8.4 g/dL 6.4-8.9 Albumin 4.6 g/dL 3.2-5.2 Globulin 3.8 g/dL 2-4 Albumin/Globulin Ratio 1.2 1-3 Total Bilirubin 0.50 mg/dL 0.2-1.0 Alkaline Phosphatase 90 U/L 34-104 Alt 32 U/L 7-52 Ast 31 U/L 13-39 Egfr Non- 256.7 >60 Egfr 330.1 >60 15 Laboratory test finding 01/11/2017 Lipase 14 U/L 11.0-82.0 C Reactive Protein 5.59 mg/L High < 5.00 16 CBC Auto Diff 12/29/2016 White Blood Count 11.8 10^3/uL High 3.5-10.8 Red Blood Count 4.30 10^6/uL 4.0-5.4 Hemoglobin 13.2 g/dL Low 14.0-18.0 Hematocrit 40 % Low 42-52 Mean Corpuscular Volume 92 fL 80-94 Mean Corpuscular Hemoglobin 31 pg 27-31 Mean Corpuscular HGB Conc 33 g/dL 31-36 Red Cell Distribution Width 15 % 10.5-15 Platelet Count 370 10^3/uL 150-450 Mean Platelet Volume 8 um3 7.4-10.4 Abs Neutrophils 7.5 10^3/uL 1.5-7.7 Abs Lymphocytes 3.4 10^3/uL 1.0-4.8 Abs Monocytes 0.7 10^3/uL 0-0.8 Abs Eosinophils 0 10^3/uL 0-0.6 Abs Basophils 0.1 10^3/uL 0-0.2 Abs Nucleated RBC 0 10^3/uL Granulocyte % 63.4 % 38-83 Lymphocyte % 29.1 % 25-47 Monocyte % 6.1 % 1-9 Eosinophil % 0.3 % 0-6 Basophil % 1.1 % 0-2 Nucleated Red Blood Cells % 0 Comp Metabolic Panel 12/29/2016 Sodium 138 mmol/L 133-145 Potassium 4.0 mmol/L 3.5-5.0 Chloride 107 mmol/L 101-111 Co2 Carbon Dioxide 24 mmol/L 22-32 Anion Gap 7 mmol/L 2-11 Glucose 83 mg/dL 70-100 Blood Urea Nitrogen 9 mg/dL 6-24 Creatinine 0.31 mg/dL Low 0.67-1.17 BUN/Creatinine Ratio 29.0 High 8-20 Calcium 10.1 mg/dL 8.6-10.3 Total Protein 7.4 g/dL 6.4-8.9 Albumin 4.1 g/dL 3.2-5.2 Globulin 3.3 g/dL 2-4 Albumin/Globulin Ratio 1.2 1-3 Total Bilirubin 0.30 mg/dL 0.2-1.0 Alkaline Phosphatase 91 U/L 34-104 Alt 53 U/L High 7-52 Ast 35 U/L 13-39 Egfr Non- 334.6 >60 Egfr 430.3 >60 17 Laboratory test finding 12/29/2016 Magnesium 2.1 mg/dL 1.9-2.7 Lipase 150 U/L High 11.0-82.0 Urinalysis Profile 12/29/2016 Urine Color Straw Urine Appearance Clear Urine Specific [place] 1.004 Low 1.010-1.030 Urine pH 7.0 5-9 Urine Urobilinogen Negative Negative Urine Ketones Negative Negative Urine Protein Negative Negative Urine Leukocytes Negative Negative Urine Blood Negative Negative Urine Nitrite Negative Negative Urine Bilirubin Negative Negative Urine Glucose Negative Negative CBC Auto Diff 02/02/2016 White Blood Count 14.7 10^3/uL High 3.5-10.8 Red Blood Count 4.87 10^6/uL 4.0-5.4 Hemoglobin 14.8 g/dL 14.0-18.0 Hematocrit 45 % 42-52 Mean Corpuscular Volume 93 fL 80-94 Mean Corpuscular Hemoglobin 30 pg 27-31 Mean Corpuscular HGB Conc 33 g/dL 31-36 Red Cell Distribution Width 15 % 10.5-15 Platelet Count 316 10^3/uL 150-450 Mean Platelet Volume 8 um3 7.4-10.4 Abs Neutrophils 11.7 10^3/uL High 1.5-7.7 Abs Lymphocytes 2.3 10^3/uL 1.0-4.8 Abs Monocytes 0.7 10^3/uL 0-0.8 Abs Eosinophils 0 10^3/uL 0-0.6 Abs Basophils 0.1 10^3/uL 0-0.2 Abs Nucleated RBC 0.01 10^3/uL Granulocyte % 79.5 % 38-83 Lymphocyte % 15.4 % Low 25-47 Monocyte % 4.5 % 1-9 Eosinophil % 0 % 0-6 Basophil % 0.6 % 0-2 Nucleated Red Blood Cells % 0.1 Comp Metabolic Panel 02/02/2016 Sodium 135 mmol/L 133-145 Potassium 3.8 mmol/L 3.5-5.0 Chloride 103 mmol/L 101-111 Co2 Carbon Dioxide 17 mmol/L Low 22-32 Anion Gap 15 mmol/L High 2-11 Glucose 65 mg/dL Low 70-100 Blood Urea Nitrogen 10 mg/dL 6-24 Creatinine 0.25 mg/dL Low 0.67-1.17 BUN/Creatinine Ratio 40.0 High 8-20 Calcium 9.8 mg/dL 8.6-10.3 Total Protein 8.2 g/dL 6.4-8.9 Albumin 4.8 g/dL 3.2-5.2 Globulin 3.4 g/dL 2-4 Albumin/Globulin Ratio 1.4 1-3 Total Bilirubin 0.50 mg/dL 0.2-1.0 Alkaline Phosphatase 88 U/L 34-104 Alt 30 U/L 7-52 Ast 29 U/L 13-39 Egfr Non- 431.6 >60 Egfr 555.0 >60 18 Laboratory test finding 02/02/2016 Acetaminophen < 15 g/mL 19 Alcohol < 10 mg/dL <10 Salicylate < 2.50 mg/dL <30 TSH (Thyroid Stimulating Horm) 0.63 ?IU/mL 0.34-5.60 Urine Drug SCR ED 02/02/2016 Amphetamine Ur Screen None Detected None Detect & Pain Clinic Barbiturates Urine Screen None Detected None Detect Benzodiazepine Urine Screen None Detected None Detect Urine Cannabinoids Screen Presumptive Posi <SEE NOTE> None Detect 20 Urine Cocaine Screen None Detected None Detect Urine Opiates Screen Presumptive Posi <SEE NOTE> None Detect 21 Urine Phencyclidine Screen None Detected None Detect 22 Urinalysis Profile 02/02/2016 Urine Color Yellow Urine Appearance Clear Urine Specific [place] 1.025 1.010-1.030 Urine pH 5.0 5-9 Urine Urobilinogen Negative Negative Urine Ketones 2+ Negative Urine Protein 1+(30 mg/dL) Negative Urine Leukocytes Negative Negative Urine Blood Negative Negative * * Negative 23 Urine Nitrite Negative Negative Urine Bilirubin Negative Negative Urine Glucose Negative Negative Urine White Blood Cell Absent Absent Urine Red Blood Cell Trace(0-2/hpf) Absent Urine Bacteria Absent Absent Laboratory test finding 12/29/2015 Creatine Kinase 242 U/L High 10-223 Flu Test A, B, Or A & 12/05/2015 Influenza A Antigen neg B,Binaxn Influenza B Antigen neg Laboratory test 06/27/2015 Vitamin D Total 29.7 ng/mL Low 30-50 finding 25(Oh) Urine Drug SCR ED 05/30/2015 Amphetamine Ur Screen None Detected None Detect & [facility] Barbiturates Urine Screen None Detected None Detect Benzodiazepine Urine Screen None Detected None Detect Urine Cannabinoids Screen Presumptive Posi <SEE NOTE> None Detect 24 Urine Cocaine Screen None Detected None Detect Urine Opiates Screen Presumptive Posi <SEE NOTE> None Detect 25 Urine Phencyclidine Screen None Detected None Detect 26 Comp Metabolic Panel 04/28/2015 Sodium 141 mmol/L 133-145 Potassium 3.8 mmol/L 3.5-5.0 Chloride 108 mmol/L 101-111 Co2 Carbon Dioxide 28 mmol/L 22-32 Anion Gap 5 mmol/L 2-11 Glucose 94 mg/dL 70-100 Blood Urea Nitrogen 7 mg/dL 6-24 Creatinine 0.28 mg/dL Low 0.67-1.17 BUN/Creatinine Ratio 25.0 High 8-20 Calcium 10.0 mg/dL 8.6-10.3 Total Protein 7.5 g/dL 6.4-8.9 Albumin 4.3 g/dL 3.2-5.2 Globulin 3.2 g/dL 2-4 Albumin/Globulin Ratio 1.3 1-3 Total Bilirubin 0.30 mg/dL 0.2-1.0 Alkaline Phosphatase 69 U/L 34-104 Alt 21 U/L 7-52 Ast 22 U/L 13-39 Egfr Non- 381.2 >60 Egfr 490.3 >60 27 CBC Auto Diff 04/28/2015 White Blood Count 9.8 10^3/uL 4.8-10.8 Red Blood Count 4.71 10^6/uL 4.0-5.4 Hemoglobin 14.6 g/dL 14.0-18.0 Hematocrit 44 % 42-52 Mean Corpuscular Volume 94 fL 80-94 Mean Corpuscular Hemoglobin 31 pg 27-31 Mean Corpuscular HGB Conc 33 g/dL 31-36 Red Cell Distribution Width 15 % 10.5-15 Platelet Count 291 10^3/uL 150-450 Mean Platelet Volume 8 um3 7.4-10.4 Abs Neutrophils 6.3 10^3/uL 1.5-7.7 Abs Lymphocytes 2.6 10^3/uL 1.0-4.8 Abs Monocytes 0.7 10^3/uL 0-0.8 Abs Eosinophils 0.1 10^3/uL 0-0.6 Abs Basophils 0.1 10^3/uL 0-0.2 Abs Nucleated RBC 0 10^3/uL Granulocyte % 64.2 % 38-83 Lymphocyte % 26.9 % 25-47 Monocyte % 7.3 % 1-9 Eosinophil % 0.8 % 0-6 Basophil % 0.8 % 0-2 Nucleated Red Blood Cells % 0 Laboratory test finding 04/28/2015 Lipase 28 U/L 11.0-82.0 C Reactive Protein 4.89 mg/L < 5.00 28 Urinalysis Profile 04/28/2015 Urine Color Straw Urine Appearance Clear Urine Specific [place] 1.002 Low 1.010-1.030 Urine pH 7.0 5-9 Urine Urobilinogen Negative Negative Urine Ketones Negative Negative Urine Protein Negative Negative Urine Leukocytes Negative Negative Urine Blood Negative Negative Urine Nitrite Negative Negative Urine Bilirubin Negative Negative Urine Glucose Negative Negative Urinalysis Profile 04/30/2014 Urine Color Raysa Urine Appearance Cloudy Urine Specific [place] 1.025 1.010-1.030 Urine pH 7.0 5-9 Urine Urobilinogen Negative Negative Urine Ketones 1+ Negative Urine Protein 1+(30 mg/dL) Negative Urine Leukocytes Negative Negative Urine Blood Negative Negative Urine Nitrite Negative Negative Urine Bilirubin Negative Negative Urine Glucose Negative Negative Urine White Blood Cell Trace(0-5/hpf) Absent Urine Red Blood Cell Trace Absent Urine Bacteria Absent Absent Urine Amorphous Crystals Present Absent Blood Culture 04/30/2014 Blood Culture (SEE NOTE) 29 Blood Culture 04/30/2014 Blood Culture (SEE NOTE) 30 CBC Auto Diff 04/30/2014 White Blood Count 9.5 10^3/uL 4.8-10.8 Red Blood Count 4.91 10^6/uL 4.0-5.4 Hemoglobin 15.0 g/dL 14.0-18.0 Hematocrit 44 % 42-52 Mean Corpuscular Volume 89 fL 80-94 Mean Corpuscular Hemoglobin 31 pg 27-31 Mean Corpuscular HGB Conc 35 g/dL 31-36 Red Cell Distribution Width 15 % 10.5-15 Platelet Count 318 10^3/uL 150-450 Mean Platelet Volume 8 um3 7.4-10.4 Abs Neutrophils 6.3 10^3/uL 1.5-7.7 Abs Lymphocytes 2.6 10^3/uL 1.0-4.8 Abs Monocytes 0.6 10^3/uL 0-0.8 Abs Eosinophils 0 10^3/uL 0-0.6 Abs Basophils 0.1 10^3/uL 0-0.2 Abs Nucleated RBC 0 10^3/uL Granulocyte % 65.8 % 38-83 Lymphocyte % 26.9 % 25-47 Monocyte % 6.2 % 1-9 Eosinophil % 0.1 % 0-6 Basophil % 1.0 % 0-2 Nucleated Red Blood Cells % 0 Inr/Protime 04/30/2014 Inr 0.91 0.85-1.06 Laboratory test finding 04/30/2014 Activated Partial 29.2 seconds 24.0- 36.1 Thrombo Time Laboratory test finding 04/30/2014 Lipase 34 U/L 11.0-82.0 C Reactive Protein < 0.10 mg/L < 5.00 31 Lactic Acid 1.1 mmol/L 0.5-2.2 Comp Metabolic Panel 04/30/2014 Sodium 139 mmol/L 133-145 Potassium 3.4 mmol/L Low 3.7-5.6 Chloride 107 mmol/L 101-111 Co2 Carbon Dioxide 24 mmol/L 22-32 Anion Gap 8 mmol/L 2-11 Glucose 115 mg/dL High 70-100 Blood Urea Nitrogen 9 mg/dL 6-24 Creatinine 0.29 mg/dL Low 0.67-1.17 BUN/Creatinine Ratio 31.0 High 8-20 Calcium 10.2 mg/dL 8.6-10.3 Total Protein 8.1 g/dL 6.4-8.9 Albumin 4.6 g/dL 3.2-5.2 Globulin 3.5 g/dL 2-4 Albumin/Globulin Ratio 1.3 1-3 Total Bilirubin 0.50 mg/dL 0.2-1.0 Alkaline Phosphatase 75 U/L 34-104 Alt 19 U/L 7-52 Ast 19 U/L 13-39 Egfr Non- 368.6 >60 Egfr 474.1 >60 32 Wound Culture/Sensi 03/11/2014 Wound/Misc Culture-Gram Stain (SEE NOTE) 33 1 Acute inflammation: >10.00 2 Presumptive Positive Presumptive positive results are unconfirmed. 3 Presumptive Positive Presumptive positive results are unconfirmed. 4 Presumptive Positive Presumptive positive results are unconfirmed. 5 The urine specimen was tested at the listed cutoffs: Drug class test level (ng/mL) Amphetamines 500 Barbiturates 200 Benzodiazepine metabolites 200 Cocaine metabolites 150 Cannabinoids 50 Opiates 300 Pcp 25 Specimen was received without chain of custody. Results should be used for medical purposes only. 6 Therapeutic concentration: <50 ug/mL Toxic concentration: >120 ug/mL 7 Because ethnic data is not always readily available, this report includes an eGFR for both -Americans and non- Americans. The National Kidney Disease Education Program (NKDEP) does not endorse the use of the MDRD equation for patients that are not between the ages of 18 and 70, are , have extremes of body size, muscle mass, or nutritional status, or are non- or non-. According to the National Kidney Foundation, irrespective of diagnosis, the stage of the disease is based on the level of kidney function: Stage Description GFR(mL/min/1.73 m(2)) 1 Kidney damage with normal or decreased GFR 90 2 Kidney damage with mild decrease in GFR 60-89 3 Moderate decrease in GFR 30-59 4 Severe decrease in GFR 15-29 5 Kidney failure <15 (or dialysis) 8 [facility] Severe Sepsis and Septic Shock Management Bundle Measure requires all lactic acids initially measuring >2.0 mmol/L be repeated. 9 Presumptive Positive Presumptive positive results are unconfirmed. 10 Presumptive Positive Presumptive positive results are unconfirmed. 11 The urine specimen was tested at the listed cutoffs: Drug class test level (ng/mL) Amphetamines 500 Barbiturates 200 Benzodiazepine metabolites 200 Cocaine metabolites 150 Cannabinoids 50 Opiates 300 Pcp 25 Specimen was received without chain of custody. Results should be used for medical purposes only. 12 Because ethnic data is not always readily available, this report includes an eGFR for both -Americans and non- Americans. The National Kidney Disease Education Program (NKDEP) does not endorse the use of the MDRD equation for patients that are not between the ages of 18 and 70, are , have extremes of body size, muscle mass, or nutritional status, or are non- or non-. According to the National Kidney Foundation, irrespective of diagnosis, the stage of the disease is based on the level of kidney function: Stage Description GFR(mL/min/1.73 m(2)) 1 Kidney damage with normal or decreased GFR 90 2 Kidney damage with mild decrease in GFR 60-89 3 Moderate decrease in GFR 30-59 4 Severe decrease in GFR 15-29 5 Kidney failure <15 (or dialysis) 13 Therapeutic concentration: <50 ug/mL Toxic concentration: >120 ug/mL 14 [facility] Severe Sepsis and Septic Shock Management Bundle Measure requires all lactic acids initially measuring >2.0 mmol/L be repeated. 15 Because ethnic data is not always readily available, this report includes an eGFR for both -Americans and non- Americans. The National Kidney Disease Education Program (NKDEP) does not endorse the use of the MDRD equation for patients that are not between the ages of 18 and 70, are , have extremes of body size, muscle mass, or nutritional status, or are non- or non-. According to the National Kidney Foundation, irrespective of diagnosis, the stage of the disease is based on the level of kidney function: Stage Description GFR(mL/min/1.73 m(2)) 1 Kidney damage with normal or decreased GFR 90 2 Kidney damage with mild decrease in GFR 60-89 3 Moderate decrease in GFR 30-59 4 Severe decrease in GFR 15-29 5 Kidney failure <15 (or dialysis) 16 Acute inflammation: >10.00 17 Because ethnic data is not always readily available, this report includes an eGFR for both -Americans and non- Americans. The National Kidney Disease Education Program (NKDEP) does not endorse the use of the MDRD equation for patients that are not between the ages of 18 and 70, are , have extremes of body size, muscle mass, or nutritional status, or are non- or non-. According to the National Kidney Foundation, irrespective of diagnosis, the stage of the disease is based on the level of kidney function: Stage Description GFR(mL/min/1.73 m(2)) 1 Kidney damage with normal or decreased GFR 90 2 Kidney damage with mild decrease in GFR 60-89 3 Moderate decrease in GFR 30-59 4 Severe decrease in GFR 15-29 5 Kidney failure <15 (or dialysis) 18 Because ethnic data is not always readily available, this report includes an eGFR for both -Americans and non- Americans. The National Kidney Disease Education Program (NKDEP) does not endorse the use of the MDRD equation for patients that are not between the ages of 18 and 70, are , have extremes of body size, muscle mass, or nutritional status, or are non- or non-. According to the National Kidney Foundation, irrespective of diagnosis, the stage of the disease is based on the level of kidney function: Stage Description GFR(mL/min/1.73 m(2)) 1 Kidney damage with normal or decreased GFR 90 2 Kidney damage with mild decrease in GFR 60-89 3 Moderate decrease in GFR 30-59 4 Severe decrease in GFR 15-29 5 Kidney failure <15 (or dialysis) 19 Therapeutic concentration: <50 ug/mL Toxic concentration: >120 ug/mL 20 Presumptive Positive Presumptive positive results are unconfirmed. 21 Presumptive Positive Presumptive positive results are unconfirmed. 22 The urine specimen was tested at the listed cutoffs: Drug class test level (ng/mL) Amphetamines 500 Barbiturates 200 Benzodiazepine metabolites 200 Cocaine metabolites 150 Cannabinoids 50 Opiates 300 Pcp 25 Specimen was received without chain of custody. Results should be used for medical purposes only. 23 *Ascorbic acid is present which may interfere with detection of blood. 24 Presumptive Positive 25 Presumptive Positive 26 The urine specimen was tested at the listed cutoffs: Drug class test level (ng/mL) Amphetamines 500 Barbituates 200 Benzodiazepine metabolites 200 Cocaine metabolites 150 Cannabinoids 50 Opiates 300 Pcp 25 This is a screening procedure. Positive results are not confirmed. Specimen was received without chain of custody. Results should be used for medical purposes only. 27 Because ethnic data is not always readily available, this report includes an eGFR for both -Americans and non- Americans. The National Kidney Disease Education Program (NKDEP) does not endorse the use of the MDRD equation for patients that are not between the ages of 18 and 70, are , have extremes of body size, muscle mass, or nutritional status, or are non- or non-. According to the National Kidney Foundation, irrespective of diagnosis, the stage of the disease is based on the level of kidney function: Stage Description GFR(mL/min/1.73 m(2)) 1 Kidney damage with normal or decreased GFR 90 2 Kidney damage with mild decrease in GFR 60-89 3 Moderate decrease in GFR 30-59 4 Severe decrease in GFR 15-29 5 Kidney failure <15 (or dialysis) 28 Acute inflammation: >10.00 29 RUN DATE: 05/05/14 [facility] LAB LIVE PAGE 1 RUN TIME: 9743 [address] [facility], [place], [place] [address] Specimen Inquiry Name: BELEN DAMICO : [address]: Kofi Alex MD Acct: [id number] Unit: [id number] AGE: 28 Location: ED Re04/30/14 SEX: M Status: DEP ER SPEC: [id number] TIEN: 04/30/14-[address] [facility] [address]: Kofi Alex MD REQ: [id number] RECD: 04/30/14 STATUS: LETY BARROSO DR: Mayelin Gardiner MD _ SOURCE: BLOOD,VENO SPDESC: ORDERED: Blood Cult Procedure Result Verified Site Aerobic Culture Bottle Final 05/05/14- 1533 ML No Growth Day 5 Anaerobic Culture Bottle Final 05/05/14- 1533 ML No Growth Day 5 END OF REPORT * ML=Testing performed at Main Lab DEPARTMENT OF PATHOLOGY, [facility] [place], [place] [address] Madhu Funes M.D. Director [facility] # [id number] 30 RUN DATE: 05/05/14 [facility] LAB LIVE PAGE 1 RUN TIME: [address] [facility] [employer] [place], [place] [address] Specimen Inquiry Name: BELEN DAMICO : [address]: Kofi Alex MD Acct: [id number] Unit: [id number] AGE: 28 Location: ED Re04/30/14 SEX: M Status: DEP ER SPEC: [id number] TIEN: 04/30/[address] [facility] [address]: Kofi Alex MD REQ: [id number] RECD: 04/30/14 STATUS: COMP [facility] DR: Mayelin Gardiner MD _ SOURCE: BLOOD,VENO [facility]: ORDERED: Blood Cult Procedure Result Verified Site Aerobic Culture Bottle Final 05/05/14- 5 ML No Growth Day 5 Anaerobic Culture Bottle Final 05/05/14- 1514 ML No Growth Day 5 END OF REPORT * ML=Testing performed at Main Lab DEPARTMENT OF PATHOLOGY, [address] [place] [address] Madhu Funes M.D. Director [facility] # [id number] 31 Acute inflammation: >10.00 32 Because ethnic data is not always readily available, this report includes an eGFR for both -Americans and non- Americans. The National Kidney Disease Education Program (NKDEP) does not endorse the use of the MDRD equation for patients that are not between the ages of 18 and 70, are , have extremes of body size, muscle mass, or nutritional status, or are non- or non-. According to the National Kidney Foundation, irrespective of diagnosis, the stage of the disease is based on the level of kidney function: Stage Description GFR(mL/min/1.73 m(2)) 1 Kidney damage with normal or decreased GFR 90 2 Kidney damage with mild decrease in GFR 60-89 3 Moderate decrease in GFR 30-59 4 Severe decrease in GFR 15-29 5 Kidney failure <15 (or dialysis) 33 RUN DATE: 03/13/14 [facility] LAB LIVE PAGE 1 RUN TIME: 8577 [address] [place], [place] [address] Specimen Inquiry Name: YOHANNESALYSA GrahamBELEN E : [address]: Mayelin Gardiner MD Acct: [id number] Unit: [id number] AGE: 28 Location: [facility] Re03/11/14 SEX: M Status: REG REF SPEC: [id number] TIEN: 03/11/14-[address]: Mayelin Gardiner MD REQ: [id number] RECD: 03/11/14 STATUS: COMP _ SOURCE: FOOT,LEFT SPDESC: ORDERED: Culture Stain QUERIES: Medent Number [id number] Procedure Result Verified Site Wound/Misc Gram Stain Final 03/12/14- 0756 ML No Polys Observed 1+ Nucleated Cells No Organisms Seen Wound/Misc Culture Final 03/13/14- 1134 ML No Growth Day 2 END OF REPORT * ML=Testing performed at Main Lab DEPARTMENT OF PATHOLOGY, [address] [place] [address] Madhu Funes M.D. Director [facility] # [id number] Procedures Date CPT Code Description Status Comment 03/12/2013 Bone Mineral Density Test Completed Osteopenia with improvement since study in 2010 Encounters Type Date Location Provider CPT E/M Dx Office Visit 11/04/2017 11:30a Main Office Kendal King, [facility] 46925 G71.0 G89.4 M54.5 M16.9 Office Visit 10/14/2017 11:30a Main Office Shawnti R. Fernando, [facility] 47443 G71.0 G89.4 K59.00 H00.014 Office Visit 08/12/2017 11:00a Main Office Shawnti R. Fernando, [facility] 12377 G71.0 G89.4 N39.41 Office Visit 07/14/2017 11:30a Main Office Shawnti R. Fernando, [facility] 91825 G71.0 G89.4 Office Visit 06/13/2017 2:15p Main Office Shawnti R. Fernando, [facility] 30907 G71.0 G89.4 T23.011A Office Visit 06/06/2017 11:45a Main Office Shawnti R. Fernando, [facility] 08598 G71.0 G89.4 Office Visit 05/12/2017 3:15p Main Office Shawnti R. Fernando, [facility] 99260 G71.0 G89.4 Z23 Office Visit 04/28/2017 11:00a Main Office Shawnti R. Fernando, [facility] 36464 G71.0 G89.4 F32.89 Office Visit 04/04/2017 11:15a Main Office Shawnti R. Fernando, [facility] 69555 F32.89 G89.4 G71.0 Office Visit 03/29/2017 11:00a Main Office Franky Martinez III, [facility] 79766 G89.4 G71.0 Office Visit 01/27/2017 10:15a Main Office Shawnti R. Fernando, [facility] 62866 G71.0 G89.4 R10.9 F41.9 Office Visit 01/03/2017 11:00a Main Office Shawnti R. Fernando, [facility] 14834 F41.9 R10.9 Office Visit 10/21/2016 11:30a Main Office Shawnti R. Fernando, [facility] 70525 G71.0 F41.9 Office Visit 08/23/2016 3:30p Main Office Shawnti R. Fernando, [facility] 58277 F41.9 K92.1 Office Visit 05/17/2016 11:00a Main Office Shawnti R. Storm, [facility] 45734 F41.9 F32.8 Office Visit 04/16/2016 3:15p Main Office Shawnti R. Storm, [facility] 43526 F41.9 Office Visit 03/24/2016 11:30[place] [address] F41.9 Office Visit 02/26/2016 4:15p Main Office Shawnti R. Storm, [facility] 92917 G89.4 F41.9 Office Visit 01/20/2016 11:15a Main Office Shawnti R. Storm, [facility] 57996 G89.4 F41.9 Office Visit 12/15/2015 10:45a Main Office Shawnti R. Storm, [facility] 13798 J18.9 G89.4 F41.9 G71.0 Office Visit 12/05/2015 2:30p Main Office Shawnti R. Storm, [facility] 54056 J18.9 Office Visit 11/07/2015 3:30p Main Office Shawnti R. Storm, [facility] 76112 G89.4 S46.811A Office Visit 10/09/2015 2:30p Main Office Shawnti R. Storm, [facility] 76241 G71.0 G89.4 F41.9 Office Visit 09/25/2015 2:15p Main Office Shawnti R. Storm, [facility] 19612 G71.0 G89.4 F41.9 Office Visit 09/11/2015 2:30p Main Office Shawnti R. Storm, [facility] 44758 G89.4 M79.604 K64.9 G71.0 Office Visit 08/21/2015 3:00p Main Office Shawnti R. Storm, [facility] 27871 G89.4 M47.16 Office Visit 08/05/2015 2:30p Main Office Shawnti R. Storm, [facility] 90655 G89.4 M47.16 Office Visit 07/18/2015 3:15p Main Office Kendal King, [facility] 74488 G89.4 G71.2 Office Visit 07/11/2015 11:30a Main Office Kendal King, [facility] 78858 G89.4 Office Visit 06/27/2015 1:30p Main Office Kendal King, [facility] 56532 G89.4 Office Visit 04/28/2015 4:00p Main Office Kendal King, [facility] 20888 338.4 359.0 Office Visit 02/03/2015 2:30p Main Office Kendal King, [facility] 25144 300.02 338.4 359.0 Office Visit 10/28/2014 2:00p Main Office Kendal King, [facility] 22414 578.1 359.0 338.4 300.02 Office Visit 09/09/2014 3:45p Main Office Kendal King, [facility] 68747 359.0 338.4 718.05 Office Visit 08/26/2014 4:00p Main Office Mayelin Gardiner M.D. 09593 359.0 338.4 300.02 311 Office Visit 07/08/2014 11:00a Main Office Mayelin Gardiner M.D. 34484 359.0 338.4 300.02 Office Visit 06/10/2014 11:00a Main Office Mayelin Gardiner M.D. 48877 359.0 338.4 311 V04.81 Office Visit 05/02/2014 3:45p Main Office Mayelin Gardiner M.D. 47768 359.0 338.4 455.0 569.42 Office Visit 03/28/2014 3:15p Main Office Mayelin Gardiner M.D. 87350 359.0 682.9 338.4 311 Office Visit 03/18/2014 2:45p Main Office Mayelin Gardiner M.D. 16147 682.9 Office Visit 03/11/2014 4:00p Main Office Mayelin Gardiner M.D. 84241 359.0 338.4 311 682.9 Office Visit 02/28/2014 10:30a Main Office Mayelin Gardiner M.D. 95589 359.0 338.4 311 300.02 733.09 Plan of Care Future Appointment(s):01/05/2018 11:00 am - MIK Dawson-C at Main [id number]/02/2017 - MIK Dawson-CG71.0 Muscular dystrophyComments:has been referred back to PT to maintain current lodnuckgK00.4 Chronic pain syndromeComments:no benefit with increased Fentanyl dose, will go back to 75mcg every other day, can use oxycodone a needed for breakthrough pain...follow in one month, sooner if neededFollow up:1 month, 30 minutes
--- OUTSIDE RECORDS SUMMARY | 2017-12-19 01:09 | XMS REPORT ---
:1985 External Reference #:[id number] Author Organization [facility] Address [address] [place] [address] Phone [phone] Care Team Providers Name Role Phone Kendal King [employer] TECHNICIAN Primary Care Physician Unavailable Payers Type Date Identification Numbers Payment Provider Subscriber Medicare Primary Policy Number: [id number] Medicare - Bswny Belen Damico Umd PayID: [id number] [address] [place] [address] [facility] Part B Policy Number: [id number] Medicaid After Medicare Belen Damico Group Name: 2 1 [address] PayID: [id number] [place] [address] Problems Date Description Provider Status Onset: 02/28/2014 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 Active Onset: 02/28/2014 Depressive disorder Mayelin Gardiner M.D. Active Onset: 02/28/2014 Generalized anxiety disorder Mayelin Gardiner M.D. Active Onset: 02/28/2014 Osteoporosis Mayelin Gardiner M.D. Active Onset: 02/28/2014 Cigarette smoker Mayelin Gardiner M.D. Active Onset: 06/27/2015 Muscular dystrophy Shawnti R. Storm, [employer] Active Family History Date Family Member(s) Problem(s) [...] Fentanyl 11/09 Active Patches 72HR 75mcg/HR 15uni 1 Patch ts Every P. Blegen, Other Day M.D. In Addition To 12 mcg Patch as Directed For Severe Pain (as The 87.5 mcg Patch Not Available) Fentanyl 11/09 Active Patches 72HR 12mcg/HR 15uni apply 1 ts patch P. Blegen, every M.D. other day as directed for pain- in addition to 75 mcg patch Tolterodine 10/14 Active Caps ER 24HR 4mg 90cap 1 by mouth N39.41 Shawnti R. Tartrate ER /2017 s every day Storm, [employer] Oxycodone HCL 08/12 Active Tablets 5mg 14tab 1 tab by G89.4 Shawnti R. /2016 s mouth q6hr Storm, as needed [employer] pain Tegaderm Film 07/14 Active Misc 15uni use to G89.4 Shawnti R. ts cover Storm, Dress/First Aid fentanyl [employer] Style 4"X4-3/4" patch Silvadene 06/13 Active Cream 1% 20gm apply to T23.011A Shawnti R. burn 2 or Storm, 3 times [employer] daily Clonidine HCL 08/23 Active Tablets 0.1mg 90tab take one F41.9 Shawnti R. /2015 s tablet by Storm, mouth [employer] three times daily if needed Clonazepam 04/16 Active Tablets 1mg 90tab take one F41.9 Shawnti R. /2015 s tab in the Storm, morning [employer] and two at night Multi Vitamin 02/28 Active Tablets Mayelin Joe Gardiner M.D. Vitamin D3 Active Capsules 2000Unit daily one Unknown Super Strength /0000 by mouth Fish Oil 00 Active Capsules 500mg one daily Unknown / Fentanyl 11/04 Hx Patches 72HR 87.5mcg/H 15uni apply one G89.4 Shawnti R. R ts patch to Storm, - skin every [employer] 11/09 other day /2017 Fentanyl 10/14 Hx Patches 72HR 75mcg/HR 15uni apply one G89.4 Shawnti R. /2017 ts to skin, Storm, - change [employer] 11/04 every other day Tolterodine 08/12 Hx Caps ER 24HR 2mg 30cap 1 po daily N39.41 Shawnti R. Tartrate ER /2016 s for urine Storm, - [employer] 10/14 Fentanyl 06/06 Hx Patches 72HR 50mcg/HR 15uni apply one G89.4 Shawnti R. ts patch to Storm, - skin, [employer] 10/14 change every other day for chronic pain Fentanyl 05/02 Hx Patches 72HR 25mcg/HR 15uni apply one G89.4 Shawnti R. ts patch to Storm, - skin, [employer] 06/06 change every Two days Fentanyl 04/28 Hx Patches 72HR 12mcg/HR 5unit apply G89.4 Shawnti R. s patch Storm, - every 3 [employer] 05/02 days directed for pain relief Nabumetone 03/29 Hx Tablets 750mg 14tab 2 tabs by G89.4 Franky s mouth once Paxton - daily III, [employer] 05/12 Oxycodone HCL 03/29 Hx Tablets 10mg 28tab take 1 G89.4 Franky /2016 s tablet by Juan - mouth III, [employer] 04/28 every hours as needed for severe pain. Buspirone HCL 04/16 Hx Tablets 10mg 90tab 1 by mouth F41.9 Shawnti R. /2015 s three Storm, - times [employer] 08/23 daily for anxiety Propranolol HCL 03/24 Hx Tablets 10mg 90tab 1 tab by F41.9 Epi /2015 s mouth [place], - three MD 04/16 times a day as needed for anxiety Elavil 03/24 Hx Tablets 25mg 30tab 1 tab by F41.9 Epi s mouth [place], - every MD 04/16 night Levofloxacin 12/04 Hx Tablets 750mg 7tabs 1 by mouth J18.9 Shawnti R. /2015 daily for Storm, - 7 days for [employer] 01/19 pneumonia Fentanyl 09/25 Hx Patches 72HR 75mcg/HR 7unit apply to G89.4 Shawnti R. s skin, Storm, - change [employer] 03/18 every hours Clonazepam 09/25 Hx Tablets 0.5mg 28tab 1 by mouth F41.9 Shawnti R. s twice a Storm, - day for [employer] 04/16 anxiety Fentanyl 09/11 Hx Patches 72HR 12mcg/HR 7unit apply to G89.4 Shawnti R. s skin Storm, - change [employer] 09/25 every days if needed with 50mcg patch Proctocort 09/11 Hx Suppository 30mg 12uni insert one K64.9 Shawnti R. ts into Storm, - rectum as [employer] 01/27 needed for hemorrhoid s Clonidine HCL 07/18 Hx Tablets 0.1mg take one Shawnti R. /2014 or 2 Storm, - tablet by [employer] 08/21 mouth times a day as needed for stress and anxiety Fentanyl 07/18 Hx Patches 72HR 50mcg/HR 7unit apply to G89.4 Shawnti R. s skin and Storm, - replace [employer] 09/25 every 48 hours. Fentanyl 07/11 Hx Patches 72HR 50mcg/HR 5unit apply to G89.4 Shawnti R. s skin and Storm, - replace [employer] 07/18 every 72 hours. Ergocalciferol 06/30 Hx Capsules [id number] 8caps 1 by mouth Shawnti R. twice Storm, - weekly for [employer] 07/30 one Fentanyl 06/27 Hx Patches 72HR 75mcg/HR 5unit apply to G89.4 Shawnti R. s skin, Storm, - change [employer] 07/11 every hours Clonidine HCL 06/27 Hx Tablets 0.2mg 60tab take one s tablet by Storm, - mouth 3 [employer] 07/18 times daily if needed for anxiety Fentanyl 04/28 Hx Patches 72HR 75mcg/HR 3unit apply to 338.4 Edmondnti R s skin, Storm, - change [employer] 05/08 every hours Oxycodone HCL 10/28 Hx Tablets 10mg 30thi 1 or 2 by Edmondnti R. rty mouth q4hr Storm, - as needed [employer] 06/27 severe pain Fentanyl 09/09 Hx Patches 72HR 50mcg/HR 3thre apply to 359.0 Edmondnti R e skin, Storm, - change [employer] 06/27 three days Bupropion HCL 07/08 Hx Tablets 75mg 30tab 1 by mouth s every day Joe Gardiner, - at noon. M.DKatarzyna 09/09 Add to morning Wellbutrin dose of 150 mg in the morning. Proctosol HC 05/02 Hx Cream 2.5% 28.35 Use as 455.0 Mayelin 0gm directed Joe Gardiner, - twice M.D. 10/21 daily to the affected area. Miralax 05/02 Hx Powder [id number] 1Bott use one 455.0 Mayelin le capful of Joe Gardiner, - powder in M.D. 06/06 8 oz of fluids Dicyclomine HCL 05/02 Hx Tablets 20mg 60tab take one 569.42 s tablet by Joe Gardiner, - mouth [...] 4 times Fernando, - nt daily if [employer] 10/28 needed breakthrou gh pain Seroquel XR Hx Tablets ER 50mg Monica, /0000 24HR MD Deisi - 04/28 Fentanyl Hx Patches 72HR 25mcg/HR 10uni apply to 359.0 Mayelin /0000 ts the skin Joe Gardiner, - and change M.D. 09/09 every hours Clonazepam Hx Tablets 0.5mg 90tab take one Shawnti R. /0000 s tablet by Fernando, - mouth [employer] 08/21 times daily Oxycodone HCL Hx Tablets 5mg Varn,Julianne /0000 nn - 02/28 Suboxone 00/00 Hx Film 8-2mg Unknown /0000 - 08/23 Suboxone 00/00 Hx Film 8-2mg daily and Unknown /0000 09/06 dose - at hs 01/27 Immunizations CPT Code Status Date Vaccine Lot # 52785 Given 05/12/2017 Influenza Virus Vaccine, Quadrivalent, 3 Yr > [id number] Quad, Preserv Free 38514 Given 05/12/2017 Prevnar-13 Pneumococcal Conjugate Vaccine [id number] Given 05/12/2016 Influenza Virus Vaccine, Quadrivalent, 3 Yr > Quad, Preserv Free 24961 Given 06/10/2014 Influenza Virus Vaccine, Quadrivalent, 3 Yr > [id number] Quad, Preserv Free 94924 Given 06/04/2013 Influenza Vaccine-Preservative Free 3 Yrs And Above 46751 Given 11/19/2008 Tdap (Adacel) Vital Signs Date Vital Result Comment 11/04/2017 BP Systolic 110 mmHg BP Diastolic [...] Color Yellow Urine Appearance Cloudy Urine Specific [place] 1.016 1.010-1.030 Urine pH 5.0 5-9 Urine [...] Color Yellow Urine Appearance Cloudy Urine Specific [place] 1.009 Low 1.010-1.030 Urine pH 8.0 5-9 [...] Color Straw Urine Appearance Clear Urine Specific [place] 1.004 Low 1.010-1.030 Urine pH 7.0 5-9 [...] Color Yellow Urine Appearance Clear Urine Specific [place] 1.025 1.010-1.030 Urine pH 5.0 5-9 Urine [...] Color Straw Urine Appearance Clear Urine Specific [place] 1.002 Low 1.010-1.030 Urine pH 7.0 5-9 Urine Urobilinogen Negative Negative Urine Ketones Negative Negative Urine Protein Negative Negative Urine Leukocytes Negative Negative Urine Blood Negative Negative Urine Nitrite Negative Negative Urine Bilirubin Negative Negative Urine Glucose Negative Negative Urinalysis Profile 04/30/2014 Urine Color Raysa Urine Appearance Cloudy Urine Specific [place] 1.025 1.010-1.030 Urine pH 7.0 5-9 Urine [...] 5 Kidney failure <15 (or dialysis) 8 [facility] Severe Sepsis and Septic Shock Management [...] <50 ug/mL Toxic concentration: >120 ug/mL 14 [place] Severe Sepsis and Septic Shock Management Bundle [...] Acute inflammation: >10.00 29 RUN DATE: 05/05/14 [facility] LIVE PAGE 1 RUN TIME: [address] [place] [address] Specimen Inquiry Name: BELEN DAMICO : [address]: Kofi Alex MD Acct: [id number] Unit: [id number] AGE: 28 Location: ED Re04/30/14 SEX: M Status: DEP ER SPEC: [id number] TIEN: 04/30/14-[address] [facility] [address]: Kofi Alex MD REQ: [id number] RECD: 04/30/14 STATUS: LETY BARROSO DR: Mayelin Gardiner MD _ SOURCE: BLOOD,VENO SPDESC: ORDERED: Blood Cult Procedure Result Verified Site Aerobic Culture Bottle Final 05/05/14- 1533 ML No Growth Day 5 Anaerobic Culture Bottle Final 05/05/14- 1533 ML No Growth Day 5 END OF REPORT * ML=Testing performed at Main Lab DEPARTMENT OF PATHOLOGY, [facility] [place] [employer] [address] Madhu Funes M.D. Director [facility] # [id number] 30 RUN DATE: 05/05/14 [facility] LIVE PAGE 1 RUN TIME: 1515 [facility] [place], [place] [address] Specimen Inquiry Name: BELEN DAMICO : [address]: Kofi Alex MD Acct: [id number] Unit: [id number] AGE: 28 Location: ED Re04/30/14 SEX: M Status: DEP ER SPEC: [id number] TIEN: 04/30/[address] [facility] [address]: Kofi Alex MD REQ: [id number] RECD: 04/30/14 STATUS: LETY BARROSO DR: Mayelin Gardiner MD _ SOURCE: [facility]LOOD,[facility]ENO [facility] ORDERED: Blood Cult Procedure Result Verified Site Aerobic Culture Bottle Final 05/05/14- 1514 ML No Growth Day 5 Anaerobic Culture Bottle Final 05/05/14- 1514 ML No Growth Day 5 END OF REPORT * ML=Testing performed at Main Lab DEPARTMENT OF PATHOLOGY, [address] [place] [address] Madhu Funes M.D. Director [facility] # [id number] 31 Acute inflammation: >10.00 32 Because ethnic [...] <15 (or dialysis) 33 RUN DATE: 03/13/14 [facility] LIVE PAGE 1 RUN TIME: [address] [place] [address] Specimen Inquiry Name: BELEN DAMICO : [address]: Mayelin Gardiner MD Acct: [id number] Unit: [id number] AGE: 28 Location: [facility] Re03/11/14 SEX: M Status: REG REF SPEC: [id number] TIEN: 03/11/14-[address]: Mayelin Gardiner MD REQ: [id number] RECD: 03/11/14 STATUS: COMP _ SOURCE: FOOT,LEFT SPDESC: ORDERED: Culture Stain QUERIES: Medent Number [id number] Procedure Result Verified Site Wound/Misc Gram Stain Final 03/12/14- 0756 ML No Polys Observed 1+ Nucleated Cells No Organisms Seen Wound/Misc Culture Final 03/13/14- 1134 ML No Growth Day 2 END OF REPORT * ML=Testing performed at Main Lab DEPARTMENT OF PATHOLOGY, [address] [place] [address] Madhu Funes M.D. Director [facility] # [id number] Procedures Date CPT Code Description Status Comment 03/12/2013 Bone Mineral Density Test Completed Osteopenia with improvement since study in 2010 Encounters Type Date Location Provider CPT E/M Dx Office Visit 10/14/2017 11:30a Main Office Kendal King, [employer] [address]2594 G71.0 G89.4 K59.00 H00.014 Office Visit 08/12/2017 11:00a Main Office Shawnti R. Fernando, [employer] 33054 G71.0 G89.4 N39.41 Office Visit 07/14/2017 11:30a Main Office Shawnti R. Fernando, [employer] 16473 G71.0 G89.4 Office Visit 06/13/2017 2:15p Main Office Shawnti R. Storm, [employer] 99926 G71.0 G89.4 T23.011A Office Visit 06/06/2017 11:45a Main Office Shawnti R. Fernando, [employer] 81664 G71.0 G89.4 Office Visit 05/12/2017 3:15p Main Office Shawnti R. Storm, [employer] [address]2450 G71.0 G89.4 Z23 Office Visit 04/28/2017 11:00a Main Office Shawnti R. Fernando, [employer] 13786 G71.0 G89.4 F32.89 Office Visit 04/04/2017 11:15a Main Office Shawnti R. Fernando, [employer] 47538 F32.89 G89.4 G71.0 Office Visit 03/29/2017 11:00a Main Office Franky Martinez MARIA LUISA, [employer] 50607 G89.4 G71.0 Office Visit 01/27/2017 10:15a Main Office Shawnti R. Fernando, [employer] 24308 G71.0 G89.4 R10.9 F41.9 Office Visit 01/03/2017 11:00a Main Office Shawnti R. Fernando, [employer] 54269 F41.9 R10.9 Office Visit 10/21/2016 11:30a Main Office Shawnti R. Storm, [employer] 37437 G71.0 F41.9 Office Visit 08/23/2016 3:30p Main Office Shawnti R. Storm, [employer] 22408 F41.9 K92.1 Office Visit 05/17/2016 11:00a Main Office Shawnti R. Storm, [employer] 36909 F41.9 F32.8 Office Visit 04/16/2016 3:15p Main Office Shawnti R. Fernando, [employer] 26880 F41.9 Office Visit 03/24/2016 11:30[place] [address] F41.9 Office Visit 02/26/2016 4:15p Main Office Shawnti R. Fernando, [employer] 26256 G89.4 F41.9 Office Visit 01/20/2016 11:15a Main Office Shawnti R. Storm, [employer] 46047 G89.4 F41.9 Office Visit 12/15/2015 10:45a Main Office Shawnti R. Storm, [employer] 61006 J18.9 G89.4 F41.9 G71.0 Office Visit 12/05/2015 2:30p Main Office Shawnti R. Fernando, [employer] 30012 J18.9 Office Visit 11/07/2015 3:30p Main Office Shawnti R. Fernando, [employer] 46294 G89.4 S46.811A Office Visit 10/09/2015 2:30p Main Office Shawnti R. Storm, [employer] 01476 G71.0 G89.4 F41.9 Office Visit 09/25/2015 2:15p Main Office Shawnti R. Storm, [employer] 72384 G71.0 G89.4 F41.9 Office Visit 09/11/2015 2:30p Main Office Shawnti R. Fernando, [employer] 25547 G89.4 M79.604 K64.9 G71.0 Office Visit 08/21/2015 3:00p Main Office Shawnti R. Storm, [employer] 19195 G89.4 M47.16 Office Visit 08/05/2015 2:30p Main Office Shawnti R. Storm, [employer] 21753 G89.4 M47.16 Office Visit 07/18/2015 3:15p Main Office Shawnti R. Storm, [employer] 07194 G89.4 G71.2 Office Visit 07/11/2015 11:30a Main Office Shawnti R. Storm, [facility] [address]130 G89.4 Office Visit 06/27/2015 1:30p Main Office Kendal King, [facility] [address]31 G89.4 Office Visit 04/28/2015 4:00p Main Office Kendal King, [facility] [address]752 338.4 359.0 Office Visit 02/03/2015 2:30p Main Office Kendal King, [facility] 57808 300.02 338.4 359.0 Office Visit 10/28/2014 2:00p Main Office Kendal King, [facility] [address]9589 578.1 359.0 338.4 300.02 Office Visit 09/09/2014 3:45p Main Office Kendal King, [facility] 09793 359.0 338.4 718.05 Office Visit 08/26/2014 4:00p Main Office Mayelin Gardiner M.D. 04614 359.0 338.4 300.02 311 Office Visit 07/08/2014 11:00a Main Office Mayelin Gardiner M.D. 79367 359.0 338.4 300.02 Office Visit 06/10/2014 11:00a Main Office Mayelin Gardiner M.D. 04960 359.0 338.4 311 V04.81 Office Visit 05/02/2014 3:45p Main Office Mayelin Gardiner M.D. 63395 359.0 338.4 455.0 569.42 Office Visit 03/28/2014 3:15p Main Office Mayelin Gardiner M.D. 54099 359.0 682.9 338.4 311 Office Visit 03/18/2014 2:45p Main Office Mayelin Gardiner M.D. 35371 682.9 Office Visit 03/11/2014 4:00p Main Office Mayelin Gardiner M.D. 10408 359.0 338.4 311 682.9 Office Visit 02/28/2014 10:30a Main Office Mayelin Gardiner M.D. 47869 359.0 338.4 311 300.02 733.09 Plan of Care Future Appointment(s):12/02/2017 11:30 am - MIK Dawson-C at Main Oabrrj8111/04/2017 - MIK Dawson-CG71.0 Muscular dystrophyNew Therapy: Physical Therapy-Evaluate And TreatComments:will refer back to PTG89.4 Chronic pain syndromeNew Medication:Fentanyl 87.5 mcg/HRComments:discussed his anxiety and obsession with his patches, mother is with him today, will start applying patches to his back where he can not reach them....discussed decreased efficacy if he is creating airpockets and cutting patches. Discussed safety concerns as wellFollow up:f/u one musqzF20.5 Low back painM16.9 Osteoarthritis of hip, unspecifiedComments:will refer back to Dr NewtonFocarlos up:referral to Dr Garcia
[2017-12-19] MEDS ORDERED: oxyCODONE TAB* 5 MG TAB PO ONE (02:48)
--- NOTE | 2017-12-19 03:31 | ED ---
Rafael Cash Gabriel, scribed for Faisal Carranza MD on 12/19/17 at 0131 . Back Pain - HPI Summary HPI Summary: This patient is a 32 year old M presenting to [facility] accompanied by his parents with a chief complaint of lower back pain. The patient rates the pain 9/10 in severity. Patient reports neck pain and hip pain. He states he has drank alcohol tonight. Hx of muscular dystrophy, anxiety, depression, and arthritis. Pt states they recently switched the brand of his fentanyl patch and it does not work as well, this is the reason he has used his 30 day supply in 10 days. His is requesting pain medication to last him until his next PCP appointment which he states is next week. Pt sees Dr. King for his pain medication - History of Current Complaint Chief Complaint: EDBackInjuryPain Stated Complaint: PAIN IN LOWER BACK AND HIP Time Seen by Provider: 12/19/17 01:05 Hx Obtained From: Patient Onset/Duration: Still Present Onset/Duration: Still Present Timing: Constant Severity Initially: Severe Severity Currently: Severe Pain Intensity: 9 Pain Scale Used: 0-10 Numeric Associated Signs And Symptoms: Positive: Other - neck pain and back pain - Allergies/Home Medications Allergies/Adverse Reactions: Allergies Allergy/AdvReac Type Severity Reaction Status Date / Time acetaminophen Allergy Rash And Verified 12/19/17 01:01 Itching PMH/Surg Hx/FS Hx/Imm Hx Endocrine/Hematology History: Denies: Hx Anticoagulant Therapy, Hx Diabetes, Hx Thyroid Disease Cardiovascular History: Reports: Other Cardiovascular Problems/Disorders - MUSCULAR DISTROPHY Denies: Hx Congestive Heart Failure, Hx Hypertension, Hx Pacemaker/ICD Respiratory History: Denies: Hx Asthma, Hx Chronic Obstructive Pulmonary Disease (COPD) History: Denies: Hx Dialysis, Hx Renal Disease Musculoskeletal History: Reports: Hx Osteoporosis, Other Musculoskeletal History - MUSCULAR DYSTROPHY Sensory History: Denies: Hx Hearing Aid Neurological History: Denies: Hx Dementia, Hx Seizures Comment Only: Other Neuro Impairments/Disorders - MUSCL. DYST Psychiatric History: Reports: Hx Anxiety Denies: Hx Eating Disorder, Hx Panic Disorder, Hx of Violent Episodes Against Others, Hx Substance Abuse - Surgical History Surgery Procedure, Year, and Place: fx rt tib-fib with hardware 2010 - Immunization History Date of Tetanus Vaccine: PT STATES UNSURE Date of Influenza Vaccine: NONE Infectious Disease History: No Infectious Disease History: Denies: Hx Hepatitis, Hx Human Immunodeficiency Virus (HIV), Traveled Outside the [place] in Last 30 Days - Family History Known Family History: Positive: Diabetes, Other - depression - Social History Lives: With Family Alcohol Use: Occasionally Hx Substance Use: Yes Substance Use Type: Reports: Marijuana Substance Use Comment - Amount & Last Used: medical marijuana Hx Tobacco Use: Yes Smoking Status (MU): Current Every Day Smoker Review of Systems Negative: Skin Diaphoresis Positive: Other - neck/back/hip pain All Other Systems Reviewed And Are Negative: Yes Physical Exam - Summary Physical Exam Summary: VITAL SIGNS: Reviewed. GENERAL: Patient is a well-developed and nourished male who is lying comfortable in the stretcher. Patient is not in any acute respiratory distress. HEAD AND FACE: No signs of trauma. No ecchymosis, hematomas or skull depressions. No sinus tenderness. EYES: PERRLA, EOMI x 2, No injected conjunctiva, no nystagmus. EARS: Hearing grossly intact. Ear canals and tympanic membranes are within normal limits. MOUTH: Oropharynx within normal limits. NECK: Supple, trachea is midline, no adenopathy, no JVD, no carotid bruit, no c- spine tenderness, neck with full ROM. CHEST: Symmetric, no tenderness at palpation LUNGS: Clear to auscultation bilaterally. No wheezing or crackles. CVS: Regular rate and rhythm, S1 and S2 present, no murmurs or gallops appreciated. ABDOMEN: Soft, non-tender. No signs of distention. No rebound no guarding, and no masses palpated. Bowel sounds are normal. EXTREMITIES: no edema, no cyanosis or clubbing. Mild atrophy in LE. Paraplegic NEURO: Alert and oriented x 3. No acute neurological deficits. Speech is normal and follows commands. SKIN: Dry and warm Triage Information Reviewed: Yes Vital Signs On Initial Exam: Initial Vitals Temp Pulse Resp BP Pulse Ox 99.3 F 79 16 97/68 98 12/19/17 00:56 12/19/17 00:56 12/19/17 00:56 12/19/17 00:56 12/19/17 00:56 Vital Signs Reviewed: Yes Diagnostics - Vital Signs Vital Signs Temp Pulse Resp BP Pulse Ox 12/19/17 00:56 99.3 F 79 16 97/68 98 - Laboratory Lab Statement: Any lab studies that have been ordered have been reviewed, and results considered in the medical decision making process. Re-Evaluation - Re-Evaluation First Eval Re-Evaluation Time: 01:47 Change: Worse Comment: Pt is uncooperative at this time. He does not want to be examined and refuses to put on a gown. Pt is being rude to staff. Second Eval Re-Evaluation Time: 02:21 Change: Improved Comment: The patient has agreed to put on a gown and be examined. Back Pain Course/Dx - Course Assessment/Plan: This patient is a 32 year old M presenting to [facility] accompanied by his parents with a chief complaint of lower back pain. The patient rates the pain 9/10 in severity. Patient reports neck pain and hip pain. Hx of muscular dystrophy, anxiety, depression, and arthritis. Pt states they recently switched the brand of his fentanyl patch and it does not work as well, this is the reason he has used his 30 day supply in 10 days. His is requesting pain medication to last him until his next PCP appointment which he states is next week. Pt sees Dr. King for his pain medication. I reviewed ISTOP for the patient. In the ED course the patient was given oxycodone. Dx muscular pain. We discussed patient care with Dr. Franky Martinez, the doctor medicaid collection specialist for his PCP. He states patient has called the office requesting pain medication for a week and claiming that the current patches do not work. He also states the patient has an appointment today at PCP. Patient will be discharged and follow up from PCP. The patient is agreeable with this plan. - Diagnoses Provider Diagnoses: Muscular pain - Provider Notifications Discussed Care Of Patient With: Franky Martinez III Time Discussed With Above Provider: 02:34 Instructed by Provider To: Other - We discussed patient care with Dr. Franky Martinez, the doctor medicaid collection specialist for his PCP. He states patient has called the office requesting pain medication for a week and claiming that the current patches do not work. He also states the patient has an appointment today with PCP. Discharge - Sign-Out/Discharge Documenting (check all that apply): Discharge - Discharge Plan Condition: Stable Disposition: HOME Patient Education Materials: Musculoskeletal Pain (ED) Referrals: Kendal King PROCESSING INSPECTOR [Primary Care Provider] - 2 Days Additional Instructions: RETURN TO THE ER FOR ANY NEW OR WORSENING SYMPTOMS The documentation as recorded by the Rafael yen Gabriel accurately reflects the service I personally performed and the decisions made by , Faisal Carranza MD.
[2017-12-19 04:08] VITALS: BP 111/79
== END 2017-12-19 02:58 | disposition home or self-care (01) ==
LOC: ED 00:55
DX: M54.5 Low back pain (principal); M54.2 Cervicalgia; M25.559 Pain in unspecified hip; G71.0 Muscular dystrophy; F41.9 Anxiety disorder, unspecified; F32.9 Major depressive disorder, single episode, unspecified
CPT/HCPCS: 99282; A9270-GY

== ENCOUNTER 2018-03-13 23:42 | Emergency (ER) | payer MEDICARE, MEDICAID ==
[2018-03-13] MEDS ORDERED: ALPRAZolam TAB* 0.5 MG PO ONE (23:58)
[2018-03-13] MEDS ORDERED: cloNIDine TAB* 0.1 MG PO ONE (23:58)
[2018-03-14 00:28] LABS: ABS Basophils 0.1 10^3/ul (0-0.2); ABS Eosinophils 0.4 10^3/ul (0-0.6); ABS Lymphocytes 4.5 10^3/ul (1.0-4.8); ABS Monocytes 0.8 10^3/ul (0-0.8); ABS Neutrophils 5.3 10^3/ul (1.5-7.7); ABS Nucleated RBC 0 10^3/ul; Eosinophil % 3.3 % (0-6); Hematocrit 42 % (42-52); Hemoglobin 14.3 g/dl (14.0-18.0); Lymphocyte % 40.5 % (25-47); Mean Corpuscular HGB Conc 34 g/dl (31-36); Mean Corpuscular Hemoglobin 31 pg (27-31); Mean Corpuscular Volume 92 fL (80-94); Mean Platelet Volume 7.4 um3 (7.4-10.4); Nucleated Red Blood Cells % 0.2; Platelet Count 412 10^3/ul (150-450); Red Blood Count 4.59 10^6/ul (4.00-5.40); Red Cell Distribution Width 16 % (10.5-15); White Blood Count 11.1 10^3/ul (3.5-10.8)
[2018-03-14 00:36] LABS: EGFR Non-African American 345.3 (>60)
--- NOTE | 2018-03-14 03:17 | ED ---
Alvarado Cash Tariq, scribed for Faisal Carranza MD on 03/13/18 at 2359 . Psychiatric Complaint - HPI Summary HPI Summary: A 32 y/o male RIDDHI presents to ED s/p expression of SI. As per triage, "pt states during argument with parents, he expressed SI, denies plan". According to the patient, he is miserable with himself and depressed. He denies any SI currently, however he stated that he objectively commented that he doesn't want to live anymore and be done with life during a conversation. He emphasized that he does not really feel that way and he wouldn't be selfish and really do anything. The patient has high blood pressure and takes Clonidine (1.3 mg x 3/ day). He noted that he did not take his high blood pressure medication because it dehydrates him a lot. The patient has been drinking alcohol because he feels the need to self-medicate himself. He believes that he needs medication for his symptoms and since he does not get it, he drinks alcohol. - History Of Current Complaint Chief Complaint: EDMentalHealth Time Seen by Provider: 03/13/18 23:45 Hx Obtained From: Patient Onset/Duration: Sudden Onset, Still Present Timing: Constant Severity Currently: None Character: Depressed, Anxious, Frustrated Aggravating Factor(s): Nothing Alleviating Factor(s): Nothing Associated Signs And Symptoms: Positive: Negative Has Suicidal: Denies: Thoughts Has Homicidal: Denies: Thoughts - Allergies/Home Medications Allergies/Adverse Reactions: Allergies Allergy/AdvReac Type Severity Reaction Status Date / Time acetaminophen Allergy Rash And Verified 12/19/17 01:01 Itching PMH/Surg Hx/FS Hx/Imm Hx Endocrine/Hematology History: Denies: Hx Anticoagulant Therapy, Hx Diabetes, Hx Thyroid Disease Cardiovascular History: Reports: Other Cardiovascular Problems/Disorders - MUSCULAR DISTROPHY Denies: Hx Congestive Heart Failure, Hx Hypertension, Hx Pacemaker/ICD Respiratory History: Denies: Hx Asthma, Hx Chronic Obstructive Pulmonary Disease (COPD) History: Denies: Hx Dialysis, Hx Renal Disease Musculoskeletal History: Reports: Hx Osteoporosis, Other Musculoskeletal History - MUSCULAR DYSTROPHY Sensory History: Denies: Hx Hearing Aid Neurological History: Denies: Hx Dementia, Hx Seizures Comment Only: Other Neuro Impairments/Disorders - MUSCL. DYST Psychiatric History: Reports: Hx Anxiety Denies: Hx Eating Disorder, Hx Panic Disorder, Hx of Violent Episodes Against Others, Hx Substance Abuse - Surgical History Surgery Procedure, Year, and Place: fx rt tib-fib with hardware 2010 - Immunization History Date of Tetanus Vaccine: PT STATES UNSURE Date of Influenza Vaccine: NONE Infectious Disease History: No Infectious Disease History: Denies: Hx Hepatitis, Hx Human Immunodeficiency Virus (HIV), Traveled Outside the [place] in Last 30 Days - Family History Known Family History: Positive: Diabetes, Other - depression - Social History Alcohol Use: Weekly Hx Substance Use: Yes Substance Use Type: Reports: Marijuana Substance Use Comment - Amount & Last Used: medical marijuana Hx Tobacco Use: Yes Smoking Status (MU): Current Every Day Smoker Review of Systems Negative: Fever Positive: Depressed, Other - NEGATIVE: SI All Other Systems Reviewed And Are Negative: Yes Physical Exam - Summary Physical Exam Summary: VITAL SIGNS: Reviewed. GENERAL: Patient is a well-developed and nourished MALE who is lying comfortable in the stretcher. Patient is not in any acute respiratory distress. HEAD AND FACE: No signs of trauma. No ecchymosis, hematomas or skull depressions. No sinus tenderness. EYES: PERRLA, EOMI x 2, No injected conjunctiva, no nystagmus. EARS: Hearing grossly intact. Ear canals and tympanic membranes are within normal limits. MOUTH: Oropharynx within normal limits. NECK: Supple, trachea is midline, no adenopathy, no JVD, no carotid bruit, no c- spine tenderness, neck with full ROM. CHEST: Symmetric, no tenderness at palpation LUNGS: Clear to auscultation bilaterally. No wheezing or crackles. CVS: Regular rate and rhythm, S1 and S2 present, no murmurs or gallops appreciated. ABDOMEN: Soft, non-tender. No signs of distention. No rebound no guarding, and no masses palpated. Bowel sounds are normal. EXTREMITIES: FROM in all major joints, no edema, no cyanosis or clubbing. NEURO: Alert and oriented x 3. No acute neurological deficits. Speech is normal and follows commands. SKIN: Dry and warm PSYCH: SI to parents, however no SI currently. Now depressed and upset with current situation. Patient is uncompliant. Triage Information Reviewed: Yes Vital Signs On Initial Exam: Initial Vitals Temp Pulse Resp BP Pulse Ox 98.0 F 102 15 181/126 98 03/13/18 23:43 03/13/18 23:43 03/13/18 23:43 03/13/18 23:43 03/13/18 23:43 Vital Signs Reviewed: Yes Diagnostics - Vital Signs Vital Signs Temp Pulse Resp BP Pulse Ox 03/13/18 23:43 98.0 F 102 15 181/126 98 - Laboratory Result Diagrams: 03/14/18 00:10 03/14/18 00:10 Lab Statement: Any lab studies that have been ordered have been reviewed, and results considered in the medical decision making process. Course/Dx - Course Course Of Treatment: A 32 y/o male RIDDHI presents to ED s/p expression of SI. As per triage, "pt states during argument with parents, he expressed SI, denies plan". According to the patient, he is miserable with himself and depressed. He denies any SI currently, however he stated that he objectively commented that he doesn't want to live anymore and be done with life during a conversation. The patient has been drinking alcohol because he feels the need to self- medicate himself. In the ED course, patient was given Catapres and Xanax. Patient was evaluated by mental health. Patient care was discussed with Dr. Khan and they recommended patient be discharged. Patient will be discharged with a diagnosis of depression. Patient is to follow up with primary care physician in 1-2 days. Pt is agreeable with this plan. - Differential Dx/Clinical Impression Provider Diagnosis: Depression - Physician Notifications Discussed Care Of Patient With: Darío Khan Discharge - Sign-Out/Discharge Documenting (check all that apply): Discharge/Admit/Transfer - DISCHARGE - Discharge Plan Condition: Stable Disposition: HOME Patient Education Materials: Depression (ED) Referrals: Kendal King CULINARY DIRECTOR [Primary Care Provider] - 2 Days (FOLLOW UP WITH PRIMARY CARE PHYSICIAN IN 1-2 DAYS.) Additional Instructions: RETURN TO ED FOR ANY NEW OR WORSENING SYMPTOMS. The documentation as recorded by the Alvarado yen Tariq accurately reflects the service I personally performed and the decisions made by me, Faisal Carranza MD.
[2018-03-14 03:18] VITALS: BP 118/83
== END 2018-03-14 03:16 | disposition home or self-care (01) ==
LOC: ED 23:42
DX: F32.9 Major depressive disorder, single episode, unspecified (principal); R45.851 Suicidal ideations; F17.210 Nicotine dependence, cigarettes, uncomplicated
CPT/HCPCS: 36415; 80053; 80320; 80329; 84443; 85025; 99284; A9270-GY; G0480

== ENCOUNTER 2021-01-09 15:45 | Inpatient (IN) ==
[2021-01-09 16:39] LABS: ABS Basophils 0.1 10^3/ul (0-0.2); ABS Eosinophils 0.1 10^3/ul (0-0.6); ABS Lymphocytes 2.3 10^3/ul (1.0-4.8); ABS Monocytes 0.6 10^3/ul (0-0.8); ABS Neutrophils 8.6 10^3/ul (1.5-7.7); Eosinophil % 0.9 %; Hematocrit 48 % (42-52); Hemoglobin 16.4 g/dL (14.0-18.0); Lymphocyte % 19.4 %; Mean Corpuscular HGB Conc 34 g/dL (31-36); Mean Corpuscular Hemoglobin 31 pg (27-31); Mean Corpuscular Volume 90 fL (80-94); Mean Platelet Volume 7.8 fL (7.4-10.4); Platelet Count 409 10^3/uL (150-450); Red Blood Count 5.39 10^6 /uL (4.18-5.48); Red Cell Distribution Width 15 % (10-15); White Blood Count 11.7 10^3/uL (3.5-10.8)
[2021-01-09 16:55] LABS: ALT 24 U/L (7-52); AST 24 U/L (13-39); Albumin 4.3 g/dL (3.2-5.2); Albumin/Globulin Ratio 1.2 (1-3); Alkaline Phosphatase 113 U/L (34-104); Anion Gap 8 mmol/L (2-11); Blood Urea Nitrogen 14 mg/dL (6-24); C Reactive Protein 35.59 mg/L (<8.01); CO2 Carbon Dioxide 29 mmol/L (22-32); Calcium 10.1 mg/dL (8.6-10.3); Chloride 102 mmol/L (101-111); Creatine Kinase 97 U/L (10-223); EGFR African American 410.5 (>60); EGFR Non-African American 339.3 (>60); Globulin 3.5 g/dL (2-4); Glucose 106 mg/dL (70-100); Potassium 4.1 mmol/L (3.5-5.0); Sodium 139 mmol/L (135-145); Total Protein 7.8 g/dL (6.4-8.9)
[2021-01-09] MEDS ORDERED: Prochlorperazine 5 mg/ml 2 ml VIAL (10 mg) IV PRN (16:59)
[2021-01-09] MEDS ORDERED: diPHENhydraMINE IV 50 MG/ML 1 ml VIAL (BENADRYL) SLOW PUSH ONE (17:02)
[2021-01-09] MEDS ORDERED: Metoclopramide 5 MG/ML VIAL (10 mg) IV SLOW PU ONE (17:02)
[2021-01-09] MEDS: NS 0.9% 1000 ml BAG 1,000 ML IV SCH ×2 (17:07→18:42)
[2021-01-09 17:30] LABS: Acetaminophen < 15 mcg/mL; Alcohol, S < 10 mg/dL (<10); Magnesium 1.8 mg/dL (1.9-2.7); Prealbumin 27 mg/dL (18-38); Salicylate < 2.50 mg/dL (<30)
[2021-01-09 17:43] LABS: TSH Ultra Thyroid Stim Horm 0.93 mcIU/mL (0.34-5.60)
[2021-01-09] MEDS ORDERED: Magnesium Sulfate 2 gm BAG 2 GM/50 ML BAG IVPB ONE (18:16)
[2021-01-09] MEDS ORDERED: Albuterol HFA INHALER 8 gm MDI INH PRN (18:26)
[2021-01-09] MEDS ORDERED: Polyethylene Glycol 3350 17 GM PACKET PO PRN (18:44)
[2021-01-09] MEDS: Enoxaparin 40 MG/0.4 ML SYR SUBCUT SCH (21:09)
[2021-01-10] MEDS: HYDROmorphone 1 MG/1 ML SYRINGE IV SLOW PU PRN ×3 (03:05→19:31)
[2021-01-10] MEDS: Ondansetron 4 mg VIAL 2 MG/ML 2 ml VIAL IV PRN ×2 (05:47→19:32)
[2021-01-10 05:57] LABS: Urine Appearance Cloudy; Urine Bilirubin Negative (Negative); Urine Blood Negative (Negative); Urine Color Yellow; Urine Glucose Negative (Negative); Urine Ketones Trace (Negative); Urine Nitrite Negative (Negative); Urine Protein Negative (Negative); Urine Specific Gravity 1.023 (1.002-1.030); Urine Urobilinogen Negative (Negative)
[2021-01-10 06:01] LABS: Hematocrit 39 % (42-52); Hemoglobin 12.9 g/dL (14.0-18.0); Mean Corpuscular HGB Conc 33 g/dL (31-36); Mean Corpuscular Hemoglobin 30 pg (27-31); Mean Corpuscular Volume 90 fL (80-94); Mean Platelet Volume 8.3 fL (7.4-10.4); Platelet Count 328 10^3/uL (150-450); Red Blood Count 4.28 10^6 /uL (4.18-5.48); Red Cell Distribution Width 15 % (10-15); White Blood Count 11.2 10^3/uL (3.5-10.8)
[2021-01-10 06:08] LABS: Urine Benzodiazepine Screen Presumptive Positive (None Detect); Urine Cannabinoids Screen Presumptive Positive (None Detect); Urine Opiates Screen Presumptive Positive (None Detect)
[2021-01-10 06:15] LABS: Anion Gap 7 mmol/L (2-11); Blood Urea Nitrogen 10 mg/dL (6-24); CO2 Carbon Dioxide 22 mmol/L (22-32); Calcium 8.7 mg/dL (8.6-10.3); Chloride 108 mmol/L (101-111); EGFR African American 410.5 (>60); EGFR Non-African American 339.3 (>60); Glucose 81 mg/dL (70-100); Potassium 3.4 mmol/L (3.5-5.0); Sodium 137 mmol/L (135-145)
[2021-01-10 06:54] LABS: ABS Basophils 0.1 10^3/ul (0-0.2); ABS Eosinophils 0.4 10^3/ul (0-0.6); ABS Lymphocytes 5.5 10^3/ul (1.0-4.8); ABS Monocytes 0.8 10^3/ul (0-0.8); ABS Neutrophils 4.3 10^3/ul (1.5-7.7); Lymphocyte % 49.5 %
[2021-01-10] MEDS: Nicotine PATCH 21 MG/24 HR PATCH TRANSDERM SCH (08:31)
[2021-01-10] MEDS: Vitamin THERAPEUTIC TAB PO SCH (08:34)
[2021-01-10] MEDS: Enoxaparin 40 MG/0.4 ML SYR SUBCUT SCH (20:59)
[2021-01-11] MEDS: HYDROmorphone 1 MG/1 ML SYRINGE IV SLOW PU PRN ×3 (00:01→13:20)
[2021-01-11] MEDS: Ondansetron 4 mg VIAL 2 MG/ML 2 ml VIAL IV PRN ×2 (01:34→21:20)
[2021-01-11 09:07] LABS: ABS Basophils 0.2 10^3/ul (0-0.2); ABS Eosinophils 0.4 10^3/ul (0-0.6); ABS Lymphocytes 4.5 10^3/ul (1.0-4.8); ABS Monocytes 0.9 10^3/ul (0-0.8); Eosinophil % 3.1 %; Hematocrit 44 % (42-52); Hemoglobin 14.7 g/dL (14.0-18.0); Lymphocyte % 32.3 %; Mean Corpuscular HGB Conc 33 g/dL (31-36); Mean Corpuscular Hemoglobin 30 pg (27-31); Mean Corpuscular Volume 90 fL (80-94); Mean Platelet Volume 7.5 fL (7.4-10.4); Nucleated Red Blood Cells % 0.1; Platelet Count 367 10^3/uL (150-450); Red Blood Count 4.92 10^6 /uL (4.18-5.48); Red Cell Distribution Width 15 % (10-15)
[2021-01-11] MEDS: Nicotine PATCH 21 MG/24 HR PATCH TRANSDERM SCH (09:18)
[2021-01-11] MEDS: Vitamin THERAPEUTIC TAB PO SCH (09:21)
[2021-01-11 09:24] LABS: Blood Urea Nitrogen 5 mg/dL (6-24); CO2 Carbon Dioxide 23 mmol/L (22-32); Calcium 9.6 mg/dL (8.6-10.3); EGFR African American 410.5 (>60); EGFR Non-African American 339.3 (>60); Glucose 81 mg/dL (70-100); Potassium 3.7 mmol/L (3.5-5.0); Sodium 139 mmol/L (135-145)
[2021-01-11 10:31] LABS: Anion Gap 13 mmol/L (2-11); Chloride 103 mmol/L (101-111)
[2021-01-11] MEDS: Enoxaparin 40 MG/0.4 ML SYR SUBCUT SCH (21:15)
[2021-01-12] MEDS: HYDROmorphone 1 MG/1 ML SYRINGE IV SLOW PU PRN ×2 (01:07→21:17)
[2021-01-12] MEDS: Nicotine PATCH 21 MG/24 HR PATCH TRANSDERM SCH (06:41)
[2021-01-12] MEDS ORDERED: Ondansetron ODT 4 mg TAB 4 MG TAB ONE (08:51)
[2021-01-12] MEDS: Vitamin THERAPEUTIC TAB PO SCH (08:55)
[2021-01-12] MEDS: Enoxaparin 40 MG/0.4 ML SYR SUBCUT SCH (21:00)
[2021-01-12] MEDS: Nicotine GUM 4MG FRUIT FLAVOR PO PRN (23:20)
[2021-01-13] MEDS: Nicotine GUM 4MG FRUIT FLAVOR PO PRN ×3 (06:03→22:26)
[2021-01-13] MEDS: Vitamin THERAPEUTIC TAB PO SCH (09:01)
[2021-01-13] MEDS: Nicotine PATCH 21 MG/24 HR PATCH TRANSDERM SCH (09:16)
[2021-01-13] MEDS: Enoxaparin 40 MG/0.4 ML SYR SUBCUT SCH (21:59)
[2021-01-14] MEDS: HYDROmorphone 1 MG/1 ML SYRINGE IV SLOW PU PRN ×2 (04:45→13:33)
[2021-01-14] MEDS: Nicotine PATCH 21 MG/24 HR PATCH TRANSDERM SCH (09:26)
[2021-01-14] MEDS: Vitamin THERAPEUTIC TAB PO SCH (09:28)
[2021-01-14] MEDS: Nicotine GUM 4MG FRUIT FLAVOR PO PRN ×3 (09:38→20:22)
[2021-01-14] MEDS: Enoxaparin 40 MG/0.4 ML SYR SUBCUT SCH (21:09)
[2021-01-15] MEDS: HYDROmorphone 1 MG/1 ML SYRINGE IV SLOW PU PRN ×2 (00:42→13:54)
[2021-01-15] MEDS: Nicotine PATCH 21 MG/24 HR PATCH TRANSDERM SCH (08:46)
[2021-01-15] MEDS: Vitamin THERAPEUTIC TAB PO SCH (08:48)
[2021-01-15] MEDS: Nicotine GUM 4MG FRUIT FLAVOR PO PRN ×2 (08:50→12:22)
[2021-01-15 10:49] LABS: ABS Basophils 0.1 10^3/ul (0-0.2); ABS Monocytes 0.8 10^3/ul (0-0.8); ABS Neutrophils 4.3 10^3/ul (1.5-7.7); Eosinophil % 10.7 %; Hematocrit 43 % (42-52); Hemoglobin 14.2 g/dL (14.0-18.0); Lymphocyte % 32.4 %; Mean Corpuscular HGB Conc 33 g/dL (31-36); Mean Corpuscular Hemoglobin 30 pg (27-31); Mean Corpuscular Volume 91 fL (80-94); Mean Platelet Volume 8.2 fL (7.4-10.4); Nucleated Red Blood Cells % 0.1; Platelet Count 355 10^3/uL (150-450); Red Blood Count 4.75 10^6 /uL (4.18-5.48); Red Cell Distribution Width 15 % (10-15); White Blood Count 9.2 10^3/uL (3.5-10.8)
[2021-01-15 11:07] LABS: Anion Gap 4 mmol/L (2-11); Blood Urea Nitrogen 6 mg/dL (6-24); CO2 Carbon Dioxide 29 mmol/L (22-32); Calcium 9.7 mg/dL (8.6-10.3); Chloride 105 mmol/L (101-111); EGFR African American 410.5 (>60); EGFR Non-African American 339.3 (>60); Glucose 106 mg/dL (70-100); Potassium 4.1 mmol/L (3.5-5.0); Sodium 138 mmol/L (135-145)
[2021-01-15 16:45] VITALS: BP 103/73
== END 2021-01-15 16:40 | DRG 92 ==
LOC: MED 15:45 → ED 15:45 → MED 18:04
PROVIDERS: ADMIT Internal Medicine; ATTEND Hospitalist

== ENCOUNTER 2021-01-15 16:41 | Inpatient (IN) ==
[2021-01-15] MEDS ORDERED: Senna TAB 8.6 mg TAB PO PRN (18:17)
[2021-01-15] MEDS: Enoxaparin 40 MG/0.4 ML SYR SUBCUT SCH (20:33)
[2021-01-15] MEDS: Nicotine GUM 2MG FRUIT FLAVOR PO PRN (23:59)
[2021-01-16] MEDS: Nicotine PATCH 14 MG/24 HR PATCH TRANSDERM SCH (08:44)
[2021-01-16 08:56] LABS: ABS Basophils 0.1 10^3/ul (0-0.2); ABS Eosinophils 1.1 10^3/ul (0-0.6); ABS Lymphocytes 3.6 10^3/ul (1.0-4.8); ABS Monocytes 0.9 10^3/ul (0-0.8); ABS Neutrophils 3.9 10^3/ul (1.5-7.7); Eosinophil % 11.5 %; Hematocrit 42 % (42-52); Lymphocyte % 37.8 %; Mean Corpuscular HGB Conc 33 g/dL (31-36); Mean Corpuscular Hemoglobin 30 pg (27-31); Mean Corpuscular Volume 90 fL (80-94); Nucleated Red Blood Cells % 0.1; Platelet Count 336 10^3/uL (150-450); Red Blood Count 4.68 10^6 /uL (4.18-5.48); Red Cell Distribution Width 15 % (10-15); White Blood Count 9.6 10^3/uL (3.5-10.8)
[2021-01-16 09:11] LABS: ALT 99 U/L (7-52); AST 85 U/L (13-39); Albumin 3.9 g/dL (3.2-5.2); Albumin/Globulin Ratio 1.2 (1-3); Alkaline Phosphatase 100 U/L (34-104); Anion Gap 5 mmol/L (2-11); Blood Urea Nitrogen 7 mg/dL (6-24); CO2 Carbon Dioxide 27 mmol/L (22-32); Calcium 9.7 mg/dL (8.6-10.3); Chloride 105 mmol/L (101-111); EGFR African American 410.5 (>60); EGFR Non-African American 339.3 (>60); Globulin 3.2 g/dL (2-4); Glucose 99 mg/dL (70-100); Sodium 137 mmol/L (135-145); Total Protein 7.1 g/dL (6.4-8.9)
[2021-01-16] MEDS: Nicotine GUM 2MG FRUIT FLAVOR PO PRN (17:44)
[2021-01-16] MEDS: Enoxaparin 40 MG/0.4 ML SYR SUBCUT SCH (21:28)
[2021-01-17] MEDS: Nicotine GUM 2MG FRUIT FLAVOR PO PRN ×2 (06:48→16:29)
[2021-01-17] MEDS: Nicotine PATCH 14 MG/24 HR PATCH TRANSDERM SCH (09:26)
[2021-01-17] MEDS: Nystatin TOP POWDER 15 GM BTL TOPICAL SCH ×2 (16:46→21:43)
[2021-01-17] MEDS: Enoxaparin 40 MG/0.4 ML SYR SUBCUT SCH (22:02)
[2021-01-18] MEDS: Nicotine GUM 2MG FRUIT FLAVOR PO PRN ×2 (06:13→16:57)
[2021-01-18] MEDS: Nicotine PATCH 14 MG/24 HR PATCH TRANSDERM SCH (09:40)
[2021-01-18] MEDS: Nystatin TOP POWDER 15 GM BTL TOPICAL SCH ×3 (09:40→21:53)
[2021-01-18] MEDS: Enoxaparin 40 MG/0.4 ML SYR SUBCUT SCH (21:45)
[2021-01-19] MEDS: Nicotine GUM 2MG FRUIT FLAVOR PO PRN ×3 (05:59→22:35)
[2021-01-19] MEDS: Nicotine PATCH 14 MG/24 HR PATCH TRANSDERM SCH (08:13)
[2021-01-19] MEDS: Nystatin TOP POWDER 15 GM BTL TOPICAL SCH ×3 (08:16→21:57)
[2021-01-19] MEDS: Ondansetron ODT 4 mg TAB 4 MG TAB PO PRN (08:31)
[2021-01-19 09:24] LABS: ALT 75 U/L (7-52); AST 49 U/L (13-39); Albumin 3.7 g/dL (3.2-5.2); Albumin/Globulin Ratio 1.2 (1-3); Alkaline Phosphatase 91 U/L (34-104); Anion Gap 7 mmol/L (2-11); Blood Urea Nitrogen 11 mg/dL (6-24); CO2 Carbon Dioxide 25 mmol/L (22-32); Calcium 9.3 mg/dL (8.6-10.3); Chloride 107 mmol/L (101-111); EGFR African American 410.5 (>60); EGFR Non-African American 339.3 (>60); Glucose 84 mg/dL (70-100); Potassium 4.1 mmol/L (3.5-5.0); Sodium 139 mmol/L (135-145); Total Protein 6.7 g/dL (6.4-8.9)
[2021-01-19] MEDS: Enoxaparin 40 MG/0.4 ML SYR SUBCUT SCH (21:56)
[2021-01-20] MEDS: Nicotine GUM 2MG FRUIT FLAVOR PO PRN ×3 (06:33→14:35)
[2021-01-20] MEDS: Nicotine PATCH 14 MG/24 HR PATCH TRANSDERM SCH (08:09)
[2021-01-20] MEDS: Nystatin TOP POWDER 15 GM BTL TOPICAL SCH ×3 (08:09→22:29)
[2021-01-20] MEDS: Enoxaparin 40 MG/0.4 ML SYR SUBCUT SCH (21:36)
[2021-01-21] MEDS: Nicotine GUM 2MG FRUIT FLAVOR PO PRN ×4 (06:25→21:19)
[2021-01-21] MEDS: Nicotine PATCH 14 MG/24 HR PATCH TRANSDERM SCH (08:45)
[2021-01-21] MEDS: Nystatin TOP POWDER 15 GM BTL TOPICAL SCH ×3 (11:30→20:52)
[2021-01-21] MEDS: Enoxaparin 40 MG/0.4 ML SYR SUBCUT SCH (20:52)
[2021-01-22] MEDS: Nicotine GUM 2MG FRUIT FLAVOR PO PRN ×4 (06:24→20:49)
[2021-01-22] MEDS: Nystatin TOP POWDER 15 GM BTL TOPICAL SCH ×3 (08:07→22:39)
[2021-01-22] MEDS: Nicotine PATCH 14 MG/24 HR PATCH TRANSDERM SCH (08:08)
[2021-01-22] MEDS: Enoxaparin 40 MG/0.4 ML SYR SUBCUT SCH (20:49)
[2021-01-23] MEDS: Nicotine GUM 2MG FRUIT FLAVOR PO PRN ×2 (07:48→13:06)
[2021-01-23 09:01] LABS: ABS Eosinophils 0.7 10^3/ul (0-0.6); ABS Lymphocytes 3.3 10^3/ul (1.0-4.8); ABS Monocytes 0.7 10^3/ul (0-0.8); ABS Neutrophils 4.4 10^3/ul (1.5-7.7); Eosinophil % 7.4 %; Hematocrit 42 % (42-52); Hemoglobin 14.1 g/dL (14.0-18.0); Lymphocyte % 36.3 %; Mean Corpuscular HGB Conc 34 g/dL (31-36); Mean Corpuscular Hemoglobin 31 pg (27-31); Mean Corpuscular Volume 90 fL (80-94); Mean Platelet Volume 7.8 fL (7.4-10.4); Nucleated Red Blood Cells % 0.1; Platelet Count 467 10^3/uL (150-450); Red Blood Count 4.62 10^6 /uL (4.18-5.48); Red Cell Distribution Width 15 % (10-15); White Blood Count 9.2 10^3/uL (3.5-10.8)
[2021-01-23 09:21] LABS: ALT 84 U/L (7-52); AST 52 U/L (13-39); Albumin/Globulin Ratio 1.1 (1-3); Alkaline Phosphatase 112 U/L (35-149); Anion Gap 6 mmol/L (2-11); Blood Urea Nitrogen 9 mg/dL (6-24); CO2 Carbon Dioxide 26 mmol/L (22-32); Calcium 9.9 mg/dL (8.6-10.3); Chloride 105 mmol/L (101-111); EGFR African American 410.5 (>60); EGFR Non-African American 339.3 (>60); Globulin 3.7 g/dL (2-4); Glucose 106 mg/dL (70-100); Potassium 4.1 mmol/L (3.5-5.0); Sodium 137 mmol/L (135-145); Total Protein 7.7 g/dL (6.4-8.9)
[2021-01-23] MEDS: Nystatin TOP POWDER 15 GM BTL TOPICAL SCH ×3 (09:28→22:19)
[2021-01-23] MEDS: Nicotine PATCH 14 MG/24 HR PATCH TRANSDERM SCH (09:28)
[2021-01-23] MEDS ORDERED: COVID-19 VACCINE, AD26(JANSSEN)/PF 0.5 ML IM ONE (14:00)
[2021-01-24] MEDS: Nicotine GUM 2MG FRUIT FLAVOR PO PRN ×2 (06:00→09:47)
[2021-01-24] MEDS: Nicotine PATCH 14 MG/24 HR PATCH TRANSDERM SCH (09:05)
[2021-01-24] MEDS: Nystatin TOP POWDER 15 GM BTL TOPICAL SCH ×3 (09:06→21:51)
[2021-01-24] MEDS: Enoxaparin 40 MG/0.4 ML SYR SUBCUT SCH (21:46)
[2021-01-25] MEDS: Nicotine GUM 2MG FRUIT FLAVOR PO PRN ×4 (06:00→22:12)
[2021-01-25] MEDS: Nicotine PATCH 14 MG/24 HR PATCH TRANSDERM SCH (08:08)
[2021-01-25] MEDS: Nystatin TOP POWDER 15 GM BTL TOPICAL SCH ×3 (08:10→22:04)
[2021-01-25] MEDS: Enoxaparin 40 MG/0.4 ML SYR SUBCUT SCH (21:56)
[2021-01-26] MEDS: Nicotine GUM 2MG FRUIT FLAVOR PO PRN ×3 (05:30→12:11)
[2021-01-26] MEDS: Nicotine PATCH 14 MG/24 HR PATCH TRANSDERM SCH (08:25)
[2021-01-26] MEDS: Nystatin TOP POWDER 15 GM BTL TOPICAL SCH ×3 (08:44→21:30)
[2021-01-26] MEDS: Enoxaparin 40 MG/0.4 ML SYR SUBCUT SCH (21:11)
[2021-01-27] MEDS: Nicotine GUM 2MG FRUIT FLAVOR PO PRN ×3 (05:50→21:11)
[2021-01-27] MEDS: Nicotine PATCH 7 MG/24 HR PATCH TRANSDERM SCH (08:20)
[2021-01-27] MEDS: Nystatin TOP POWDER 15 GM BTL TOPICAL SCH ×3 (08:20→21:13)
[2021-01-27] MEDS: Enoxaparin 40 MG/0.4 ML SYR SUBCUT SCH (21:10)
[2021-01-28] MEDS: Nicotine GUM 2MG FRUIT FLAVOR PO PRN ×4 (05:56→22:06)
[2021-01-28] MEDS: Nystatin TOP POWDER 15 GM BTL TOPICAL SCH ×3 (11:08→22:19)
[2021-01-28] MEDS: Nicotine PATCH 7 MG/24 HR PATCH TRANSDERM SCH (11:16)
[2021-01-28] MEDS: Enoxaparin 40 MG/0.4 ML SYR SUBCUT SCH (21:57)
[2021-01-29] MEDS: Nicotine GUM 2MG FRUIT FLAVOR PO PRN ×4 (06:18→20:34)
[2021-01-29] MEDS: Ondansetron ODT 4 mg TAB 4 MG TAB PO PRN (07:26)
[2021-01-29] MEDS: Nicotine PATCH 7 MG/24 HR PATCH TRANSDERM SCH (09:04)
[2021-01-29] MEDS: Nystatin TOP POWDER 15 GM BTL TOPICAL SCH ×3 (09:04→20:38)
[2021-01-29] MEDS: Enoxaparin 40 MG/0.4 ML SYR SUBCUT SCH (20:34)
[2021-01-30] MEDS: Nicotine GUM 2MG FRUIT FLAVOR PO PRN ×3 (06:06→15:28)
[2021-01-30] MEDS: Nicotine PATCH 7 MG/24 HR PATCH TRANSDERM SCH (08:40)
[2021-01-30] MEDS: Nystatin TOP POWDER 15 GM BTL TOPICAL SCH ×3 (08:40→22:17)
[2021-01-30] MEDS: Enoxaparin 40 MG/0.4 ML SYR SUBCUT SCH (22:11)
[2021-01-31] MEDS: Nicotine GUM 2MG FRUIT FLAVOR PO PRN ×4 (06:26→22:51)
[2021-01-31] MEDS: Nicotine PATCH 7 MG/24 HR PATCH TRANSDERM SCH (07:44)
[2021-01-31] MEDS: Nystatin TOP POWDER 15 GM BTL TOPICAL SCH ×3 (07:45→21:07)
[2021-01-31 10:09] LABS: ABS Basophils 0.1 10^3/ul (0-0.2); ABS Eosinophils 0.4 10^3/ul (0-0.6); ABS Lymphocytes 4.5 10^3/ul (1.0-4.8); ABS Neutrophils 5.4 10^3/ul (1.5-7.7); Eosinophil % 3.4 %; Hematocrit 39 % (42-52); Hemoglobin 12.9 g/dL (14.0-18.0); Lymphocyte % 39.4 %; Mean Corpuscular HGB Conc 33 g/dL (31-36); Mean Corpuscular Hemoglobin 30 pg (27-31); Mean Corpuscular Volume 90 fL (80-94); Mean Platelet Volume 8.2 fL (7.4-10.4); Nucleated Red Blood Cells % 0.1; Platelet Count 451 10^3/uL (150-450); Red Cell Distribution Width 15 % (10-15); White Blood Count 11.3 10^3/uL (3.5-10.8)
[2021-01-31 10:19] LABS: ALT 61 U/L (7-52); AST 47 U/L (13-39); Albumin 3.5 g/dL (3.2-5.2); Albumin/Globulin Ratio 1.1 (1-3); Alkaline Phosphatase 113 U/L (35-149); Anion Gap 2 mmol/L (2-11); Blood Urea Nitrogen 9 mg/dL (6-24); CO2 Carbon Dioxide 30 mmol/L (22-32); Calcium 9.5 mg/dL (8.6-10.3); Chloride 105 mmol/L (101-111); EGFR African American 410.5 (>60); EGFR Non-African American 339.3 (>60); Globulin 3.2 g/dL (2-4); Glucose 92 mg/dL (70-100); Potassium 4.8 mmol/L (3.5-5.0); Sodium 137 mmol/L (135-145); Total Protein 6.7 g/dL (6.4-8.9)
[2021-01-31 12:27] LABS: Cholesterol 195 mg/dL; HDL Cholesterol 54.2 mg/dL; LDL Cholesterol 123 mg/dL; Triglycerides 91 mg/dL
[2021-01-31] MEDS: Enoxaparin 40 MG/0.4 ML SYR SUBCUT SCH (22:48)
[2021-02-01] MEDS: Nicotine GUM 2MG FRUIT FLAVOR PO PRN ×4 (06:12→18:27)
[2021-02-01] MEDS: Nicotine PATCH 7 MG/24 HR PATCH TRANSDERM SCH (11:45)
[2021-02-01] MEDS: Nystatin TOP POWDER 15 GM BTL TOPICAL SCH ×3 (11:46→21:43)
[2021-02-01] MEDS: Enoxaparin 40 MG/0.4 ML SYR SUBCUT SCH (21:55)
[2021-02-02] MEDS: Nicotine GUM 2MG FRUIT FLAVOR PO PRN ×4 (05:51→15:50)
[2021-02-02] MEDS: Nicotine PATCH 7 MG/24 HR PATCH TRANSDERM SCH (08:30)
[2021-02-02] MEDS: Nystatin TOP POWDER 15 GM BTL TOPICAL SCH ×3 (08:31→20:09)
[2021-02-02] MEDS: Polyethylene Glycol 3350 17 GM PACKET PO PRN (13:10)
[2021-02-02] MEDS: Enoxaparin 40 MG/0.4 ML SYR SUBCUT SCH (20:06)
[2021-02-03] MEDS: Nicotine GUM 2MG FRUIT FLAVOR PO PRN ×5 (05:37→23:59)
[2021-02-03] MEDS: Nicotine PATCH 7 MG/24 HR PATCH TRANSDERM SCH (09:12)
[2021-02-03] MEDS: Nystatin TOP POWDER 15 GM BTL TOPICAL SCH ×3 (09:12→21:37)
[2021-02-03] MEDS: Enoxaparin 40 MG/0.4 ML SYR SUBCUT SCH (21:28)
[2021-02-04] MEDS: Nicotine GUM 2MG FRUIT FLAVOR PO PRN ×3 (05:59→16:45)
[2021-02-04] MEDS: Ondansetron ODT 4 mg TAB 4 MG TAB PO PRN (07:43)
[2021-02-04] MEDS: Nicotine PATCH 7 MG/24 HR PATCH TRANSDERM SCH (08:50)
[2021-02-04] MEDS: Nystatin TOP POWDER 15 GM BTL TOPICAL SCH ×3 (08:50→21:39)
[2021-02-04] MEDS: Enoxaparin 40 MG/0.4 ML SYR SUBCUT SCH (21:36)
[2021-02-05] MEDS: Nicotine GUM 2MG FRUIT FLAVOR PO PRN ×6 (00:11→23:50)
[2021-02-05] MEDS: Nystatin TOP POWDER 15 GM BTL TOPICAL SCH ×3 (08:53→21:46)
[2021-02-05] MEDS: Nicotine PATCH 7 MG/24 HR PATCH TRANSDERM SCH (08:53)
[2021-02-05] MEDS: Enoxaparin 40 MG/0.4 ML SYR SUBCUT SCH (21:42)
[2021-02-06] MEDS: Nicotine GUM 2MG FRUIT FLAVOR PO PRN ×4 (05:52→19:11)
[2021-02-06] MEDS: Nystatin TOP POWDER 15 GM BTL TOPICAL SCH ×3 (07:32→21:35)
[2021-02-06] MEDS: Nicotine PATCH 7 MG/24 HR PATCH TRANSDERM SCH (07:32)
[2021-02-06] MEDS: Enoxaparin 40 MG/0.4 ML SYR SUBCUT SCH (21:30)
[2021-02-07] MEDS: Nicotine GUM 2MG FRUIT FLAVOR PO PRN ×4 (00:02→19:56)
[2021-02-07] MEDS: Nicotine PATCH 7 MG/24 HR PATCH TRANSDERM SCH (11:12)
[2021-02-07] MEDS: Nystatin TOP POWDER 15 GM BTL TOPICAL SCH ×3 (11:13→21:52)
[2021-02-07 11:58] LABS: ALT 78 U/L (7-52); AST 51 U/L (13-39); Albumin 3.9 g/dL (3.2-5.2); Albumin/Globulin Ratio 1.1 (1-3); Alkaline Phosphatase 124 U/L (35-149); Anion Gap 6 mmol/L (2-11); Blood Urea Nitrogen 11 mg/dL (6-24); CO2 Carbon Dioxide 26 mmol/L (22-32); Calcium 9.8 mg/dL (8.6-10.3); Chloride 104 mmol/L (101-111); EGFR African American 410.5 (>60); EGFR Non-African American 339.3 (>60); Globulin 3.6 g/dL (2-4); Glucose 115 mg/dL (70-100); Potassium 4.1 mmol/L (3.5-5.0); Sodium 136 mmol/L (135-145); Total Protein 7.5 g/dL (6.4-8.9)
[2021-02-07 13:41] LABS: Hematocrit 41 % (42-52); Hemoglobin 13.7 g/dL (14.0-18.0); Mean Corpuscular HGB Conc 34 g/dL (31-36); Mean Corpuscular Hemoglobin 30 pg (27-31); Mean Corpuscular Volume 90 fL (80-94); Mean Platelet Volume 8.2 fL (7.4-10.4); Platelet Count 438 10^3/uL (150-450); Red Blood Count 4.55 10^6 /uL (4.18-5.48); Red Cell Distribution Width 15 % (10-15)
[2021-02-07 13:51] LABS: ABS Basophils 0.2 10^3/ul (0-0.2); ABS Eosinophils 0.4 10^3/ul (0-0.6); ABS Lymphocytes 4.2 10^3/ul (1.0-4.8); ABS Monocytes 0.7 10^3/ul (0-0.8); ABS Neutrophils 4.5 10^3/ul (1.5-7.7); Eosinophil % 4.1 %; Lymphocyte % 41.9 %
[2021-02-07] MEDS: Enoxaparin 40 MG/0.4 ML SYR SUBCUT SCH (21:53)
[2021-02-08] MEDS: Nicotine GUM 2MG FRUIT FLAVOR PO PRN ×5 (02:20→21:39)
[2021-02-08] MEDS: Nystatin TOP POWDER 15 GM BTL TOPICAL SCH ×3 (09:18→21:35)
[2021-02-08] MEDS: Nicotine PATCH 7 MG/24 HR PATCH TRANSDERM SCH (12:52)
[2021-02-08] MEDS: Enoxaparin 40 MG/0.4 ML SYR SUBCUT SCH (21:31)
[2021-02-09] MEDS: Nicotine GUM 2MG FRUIT FLAVOR PO PRN ×6 (06:02→23:55)
[2021-02-09] MEDS: Nicotine PATCH 7 MG/24 HR PATCH TRANSDERM SCH (09:02)
[2021-02-09] MEDS: Nystatin TOP POWDER 15 GM BTL TOPICAL SCH ×3 (09:03→20:50)
[2021-02-10 03:42] LABS: Hepatitis B Surface Antigen Nonreactive (Nonreactive)
[2021-02-10 03:47] LABS: Hepatitis A Ab IgM Negative (Negative)
[2021-02-10 03:48] LABS: Hepatitis B Core IgM Nonreactive (Nonreactive)
[2021-02-10] MEDS: Nicotine GUM 2MG FRUIT FLAVOR PO PRN ×5 (06:36→23:51)
[2021-02-10 11:44] LABS: Hepatitis C Antibody Negative (Negative)
[2021-02-10] MEDS: Nicotine PATCH 7 MG/24 HR PATCH TRANSDERM SCH (14:17)
[2021-02-10] MEDS: Nystatin TOP POWDER 15 GM BTL TOPICAL SCH ×2 (14:17→21:20)
[2021-02-11] MEDS: Nicotine GUM 2MG FRUIT FLAVOR PO PRN ×7 (05:13→23:56)
[2021-02-11] MEDS: Nicotine PATCH 7 MG/24 HR PATCH TRANSDERM SCH (08:36)
[2021-02-11] MEDS: Nystatin TOP POWDER 15 GM BTL TOPICAL SCH ×3 (08:36→21:46)
[2021-02-11 08:45] LABS: ALT 50 U/L (7-52); AST 34 U/L (13-39); Albumin 3.4 g/dL (3.2-5.2); Alkaline Phosphatase 125 U/L (35-149); Anion Gap 3 mmol/L (2-11); Blood Urea Nitrogen 14 mg/dL (6-24); CO2 Carbon Dioxide 28 mmol/L (22-32); Calcium 9.2 mg/dL (8.6-10.3); Chloride 104 mmol/L (101-111); EGFR African American 410.5 (>60); EGFR Non-African American 339.3 (>60); Globulin 3.4 g/dL (2-4); Glucose 117 mg/dL (70-100); Potassium 4.1 mmol/L (3.5-5.0); Sodium 135 mmol/L (135-145); Total Protein 6.8 g/dL (6.4-8.9)
[2021-02-12] MEDS: Nicotine GUM 2MG FRUIT FLAVOR PO PRN ×5 (05:54→21:35)
[2021-02-12] MEDS: Nicotine PATCH 7 MG/24 HR PATCH TRANSDERM SCH (08:27)
[2021-02-12] MEDS: Nystatin TOP POWDER 15 GM BTL TOPICAL SCH ×3 (08:28→21:03)
[2021-02-12] MEDS: Polyethylene Glycol 3350 17 GM PACKET PO PRN (21:32)
[2021-02-13] MEDS: Nicotine GUM 2MG FRUIT FLAVOR PO PRN ×3 (03:49→13:08)
[2021-02-13] MEDS: Nystatin TOP POWDER 15 GM BTL TOPICAL SCH ×2 (09:03→12:38)
[2021-02-13] MEDS: Nicotine PATCH 7 MG/24 HR PATCH TRANSDERM SCH (09:03)
[2021-02-13 14:25] VITALS: BP 138/82
== END 2021-02-13 16:10 | disposition home health service (06) | DRG 92 ==
LOC: PMRU 16:41
PROVIDERS: ADMIT Physical Medicine & Rehabilitation; ATTEND Physical Medicine & Rehabilitation

== ENCOUNTER 2023-02-21 20:33 | Inpatient (IN) ==
[2023-02-21] MEDS ORDERED: Lorazepam PYXIS KEY PRN (20:57)
[2023-02-21] MEDS ORDERED: LORazepam 2 mg VIAL 1 ml IV PUSH ONE (20:57)
[2023-02-21] MEDS ORDERED: fentaNYL 100 mcg/2 ml 50 MCG/ML VIAL IV PRN (20:58)
[2023-02-21 23:42] LABS: ABS Basophils 0.1 10^3/uL (0.0-0.1); ABS Eosinophils 0.2 10^3/uL (0.0-0.5); ABS Lymphocytes 2.6 10^3/uL (1.0-4.8); ABS Neutrophils 12.2 10^3/uL (1.5-7.6); ABS Nucleated RBC 0.01 10^3/ul; Eosinophil % 1.3 %; Hematocrit 41.2 % (38-53); Hemoglobin 13.9 g/dL (13.2-16.3); Lymphocyte % 16.4 %; Mean Corpuscular Hemoglobin 31.3 pg (27-33); Mean Corpuscular Hgb Conc 33.9 g/dL (31-36); Mean Corpuscular Volume 92.3 fL (80-97); Mean Platelet Volume 7.8 fL (7.5-11.2); Platelet Count 323 10^3/uL (150-450); Red Blood Count 4.46 10^6/uL (4.06-5.63); Red Cell Distribution Width 14.6 % (12-17); White Blood Count 16.1 10^3/uL (3.6-10.2)
[2023-02-21 23:59] LABS: ALT 40 U/L (7-52); AST 36 U/L (13-39); Albumin 4.1 g/dL (3.2-5.2); Albumin/Globulin Ratio 1.2 (1-3); Alkaline Phosphatase 92 U/L (35-149); Anion Gap 7 mmol/L (2-16); Blood Urea Nitrogen 12 mg/dL (6-24); CO2 Carbon Dioxide 28 mmol/L (22-32); Calcium 9.5 mg/dL (8.6-10.3); Chloride 104 mmol/L (101-111); Globulin 3.5 g/dL (2-4); Glucose 102 mg/dL (70-100); Potassium 3.6 mmol/L (3.5-5.0); Sodium 139 mmol/L (135-145); Total Protein 7.6 g/dL (6.4-8.9)
[2023-02-22 00:02] LABS: Creatinine, Serum 0.28 mg/dL (0.67-1.17); eGFR CKD-EPI 159.5 (>60)
[2023-02-22 00:09] LABS: Alcohol, S < 13 mg/dL (<13)
[2023-02-22] MEDS ORDERED: Nicotine GUM 2MG FRUIT FLAVOR PO PRN (00:10)
[2023-02-22 00:12] LABS: INR 1.14 (0.88-1.18)
[2023-02-22] MEDS ORDERED: Heparin 5000 UNITS/ML 1 mL VIAL SUBCUT ONE (00:30)
[2023-02-22] MEDS: diazePAM INJ CARPUJECT 5 MG/ML SYRINGE IV PRN ×3 (01:10→22:09)
[2023-02-22] MEDS: HYDROmorphone 1 MG/1 ML SYRINGE IV PRN ×4 (01:11→22:09)
[2023-02-22] MEDS: Nicotine PATCH 21 MG/24 HR PATCH TRANSDERM SCH ×2 (01:11→09:28)
[2023-02-22 06:47] LABS: ABS Basophils 0.1 10^3/uL (0.0-0.1); ABS Lymphocytes 2.2 10^3/uL (1.0-4.8); ABS Monocytes 1.1 10^3/uL (0.0-1.1); ABS Neutrophils 9.6 10^3/uL (1.5-7.6); ABS Nucleated RBC 0.01 10^3/ul; Eosinophil % 0.1 %; Hematocrit 40.6 % (38-53); Hemoglobin 13.6 g/dL (13.2-16.3); Lymphocyte % 16.9 %; Mean Corpuscular Hemoglobin 30.9 pg (27-33); Mean Corpuscular Hgb Conc 33.4 g/dL (31-36); Mean Corpuscular Volume 92.6 fL (80-97); Mean Platelet Volume 8.5 fL (7.5-11.2); Nucleated Red Blood Cells % 0.1 /100 WBC (0.0-0.4); Platelet Count 303 10^3/uL (150-450); Red Blood Count 4.39 10^6/uL (4.06-5.63); Red Cell Distribution Width 14.4 % (12-17)
[2023-02-22 07:09] LABS: Anion Gap 11 mmol/L (2-16); Blood Urea Nitrogen 9 mg/dL (6-24); CO2 Carbon Dioxide 22 mmol/L (22-32); Calcium 9.2 mg/dL (8.6-10.3); Chloride 105 mmol/L (101-111); Glucose 103 mg/dL (70-100); Potassium 3.7 mmol/L (3.5-5.0); Sodium 138 mmol/L (135-145)
[2023-02-22 08:11] LABS: Creatinine, Serum < 0.30 mg/dL (0.67-1.17); eGFR CKD-EPI 156.2 (>60)
[2023-02-22] MEDS: Fluticasone NASAL SPRAY 50MCG 16 gm SPRAY BTL INTRANASAL SCH (09:35)
[2023-02-22] MEDS ORDERED: Propofol 10 MG/ML 20 ML BTL ONE (10:30)
[2023-02-22] MEDS ORDERED: Midazolam 2 mg/2 ml VIAL 1 mg/ml 2 ml VIAL (2 mg) ONE ×2 (10:30→11:07)
[2023-02-22] MEDS ORDERED: fentaNYL 100 mcg/2 ml 50 MCG/ML VIAL ONE (10:30)
[2023-02-22] MEDS ORDERED: Lidocaine 2% PF 5 ML VIAL ONE (10:30)
[2023-02-22] MEDS ORDERED: Rocuronium 50 mg VIAL 10 mg/ml 5 ml VIAL (50 mg) ONE (10:31)
[2023-02-22] MEDS ORDERED: Famotidine IV 10 MG/ML 2 ml VIAL (20 mg) IV ONE (10:38)
[2023-02-22] MEDS ORDERED: Buffered Lidocaine 1% SYRIN 1 ml INTRADERM ONE (10:38)
[2023-02-22] MEDS ORDERED: Dexamethasone IV 4 MG/ML VIAL 1 ml VIAL IV SLOW PU ONE (10:38)
[2023-02-22] MEDS ORDERED: Bupivacaine 0.5% SDV PF 30ML VIAL ONE (10:53)
[2023-02-22] MEDS ORDERED: Lactated Ringers 1000 ml BAG 1,000 ML IV SCH (11:00)
[2023-02-22] MEDS ORDERED: Dexamethasone IV 4 MG/ML VIAL 1 ml VIAL ONE (12:09)
[2023-02-22] MEDS ORDERED: Famotidine IV 10 MG/ML 2 ml VIAL (20 mg) ONE (12:09)
[2023-02-22] MEDS ORDERED: ceFAZolin 2 GM in NS PREMIX 2 GM/100 ML BAG IVPB ONE (12:44)
[2023-02-22] MEDS ORDERED: ROPIVACAINE 5 MG/ML 30 ML BTL (0.5%) ONE (12:52)
[2023-02-22] MEDS ORDERED: Benzocaine/Butamben/Tetracain (CETACAINE - SINGLE USE) 5 gm TOPICAL ONE (14:02)
[2023-02-22] MEDS ORDERED: Phenylephrine 40 mcg/mL 10mL (400mcg) SYRINGE ONE (14:15)
[2023-02-22] MEDS ORDERED: Ondansetron 4 mg VIAL 2 MG/ML 2 ml VIAL ONE (14:29)
[2023-02-22] MEDS ORDERED: Naloxone 0.4 mg VIAL 0.4 mg/ml 1 ml VIAL IV PRN (15:02)
[2023-02-22] MEDS ORDERED: HYDROmorphone 1 MG/1 ML SYRINGE IV PRN (15:02)
[2023-02-22] MEDS ORDERED: fentaNYL 100 mcg/2 ml 50 MCG/ML VIAL IV PRN (15:02)
[2023-02-22] MEDS: Enoxaparin 40 MG/0.4 ML SYR SUBCUT SCH (19:35)
[2023-02-23] MEDS: HYDROmorphone 1 MG/1 ML SYRINGE IV PRN ×2 (04:44→08:59)
[2023-02-23 08:45] LABS: Hematocrit 36.6 % (38-53); Hemoglobin 12.3 g/dL (13.2-16.3); Mean Corpuscular Hemoglobin 31.1 pg (27-33); Mean Corpuscular Hgb Conc 33.6 g/dL (31-36); Mean Corpuscular Volume 92.6 fL (80-97); Mean Platelet Volume 7.9 fL (7.5-11.2); Platelet Count 291 10^3/uL (150-450); Red Blood Count 3.96 10^6/uL (4.06-5.63); Red Cell Distribution Width 14.5 % (12-17)
[2023-02-23] MEDS: Fluticasone NASAL SPRAY 50MCG 16 gm SPRAY BTL INTRANASAL SCH (08:56)
[2023-02-23] MEDS: Nicotine PATCH 21 MG/24 HR PATCH TRANSDERM SCH (08:57)
[2023-02-23] MEDS: diazePAM INJ CARPUJECT 5 MG/ML SYRINGE IV PRN (08:59)
[2023-02-23 09:04] LABS: Anion Gap 6 mmol/L (2-16); Blood Urea Nitrogen 7 mg/dL (6-24); CO2 Carbon Dioxide 28 mmol/L (22-32); Calcium 9.1 mg/dL (8.6-10.3); Chloride 104 mmol/L (101-111); Glucose 148 mg/dL (70-100); Potassium 3.4 mmol/L (3.5-5.0); Sodium 138 mmol/L (135-145)
[2023-02-23 09:07] LABS: Creatinine, Serum < 0.30 mg/dL (0.67-1.17); eGFR CKD-EPI 156.2 (>60)
[2023-02-23 09:16] LABS: ABS Basophils 0.1 10^3/uL (0.0-0.1); ABS Lymphocytes 2.9 10^3/uL (1.0-4.8); ABS Monocytes 1.6 10^3/uL (0.0-1.1); ABS Neutrophils 9.4 10^3/uL (1.5-7.6); Lymphocyte % 20.8 %
[2023-02-23] MEDS ORDERED: fentaNYL PATCH 50 MCG/HR 1 PATCH TRANSDERM SCH (15:00)
[2023-02-23] MEDS: Enoxaparin 40 MG/0.4 ML SYR SUBCUT SCH (18:29)
[2023-02-23] MEDS: fentaNYL Patch Check Q Shift NOTE FOLLOW UP SCH (18:55)
[2023-02-24] MEDS: fentaNYL Patch Check Q Shift NOTE FOLLOW UP SCH ×2 (07:11→19:27)
[2023-02-24] MEDS: Fluticasone NASAL SPRAY 50MCG 16 gm SPRAY BTL INTRANASAL SCH (09:23)
[2023-02-24] MEDS: Nicotine PATCH 21 MG/24 HR PATCH TRANSDERM SCH (09:26)
[2023-02-24] MEDS: Enoxaparin 40 MG/0.4 ML SYR SUBCUT SCH (18:30)
[2023-02-25] MEDS: fentaNYL Patch Check Q Shift NOTE FOLLOW UP SCH (07:14)
[2023-02-25] MEDS: Nicotine PATCH 21 MG/24 HR PATCH TRANSDERM SCH (09:58)
[2023-02-25] MEDS: Fluticasone NASAL SPRAY 50MCG 16 gm SPRAY BTL INTRANASAL SCH (10:03)
[2023-02-25 13:45] VITALS: BP 121/89
== END 2023-02-25 14:00 | DRG 482 ==
LOC: EDHOLD 20:33 → ED 20:33 → SUATTDRO 22:13 → EDHOLD 02-22 05:22 → MEDTELE 02-22 05:41
PROVIDERS: ADMIT Hospitalist; ATTEND Hospitalist

== ENCOUNTER 2023-02-25 10:05 | Inpatient (IN) ==
[2023-02-25] MEDS ORDERED: Magnesium Hydroxide LIQ 30 ML UDC PO PRN (13:28)
[2023-02-25] MEDS: Enoxaparin 40 MG/0.4 ML SYR SUBCUT SCH (18:54)
[2023-02-25] MEDS: fentaNYL PATCH 50 MCG/HR 1 PATCH TRANSDERM SCH (18:57)
[2023-02-25] MEDS: fentaNYL Patch Check Q Shift NOTE FOLLOW UP SCH (19:01)
[2023-02-25] MEDS: Senna TAB 8.6 mg TAB PO PRN (21:53)
[2023-02-26] MEDS: fentaNYL Patch Check Q Shift NOTE FOLLOW UP SCH ×2 (07:22→19:04)
[2023-02-26] MEDS: Enoxaparin 40 MG/0.4 ML SYR SUBCUT SCH (19:02)
[2023-02-27] MEDS: fentaNYL Patch Check Q Shift NOTE FOLLOW UP SCH ×3 (07:05→19:13)
[2023-02-27] MEDS: Enoxaparin 40 MG/0.4 ML SYR SUBCUT SCH (19:12)
[2023-02-28] MEDS: fentaNYL Patch Check Q Shift NOTE FOLLOW UP SCH ×4 (07:07→23:55)
[2023-02-28 09:26] LABS: ABS Basophils 0.1 10^3/uL (0.0-0.1); ABS Eosinophils 0.5 10^3/uL (0.0-0.5); ABS Neutrophils 5.5 10^3/uL (1.5-7.6); ABS Nucleated RBC 0.01 10^3/ul; ALT 70 U/L (7-52); AST 59 U/L (13-39); Albumin 3.6 g/dL (3.2-5.2); Albumin/Globulin Ratio 1.1 (1-3); Alkaline Phosphatase 94 U/L (35-149); Anion Gap 6 mmol/L (2-16); Blood Urea Nitrogen 9 mg/dL (6-24); CO2 Carbon Dioxide 28 mmol/L (22-32); Calcium 9.5 mg/dL (8.6-10.3); Chloride 103 mmol/L (101-111); Eosinophil % 4.9 %; Globulin 3.4 g/dL (2-4); Glucose 102 mg/dL (70-100); Hemoglobin 11.9 g/dL (13.2-16.3); Lymphocyte % 35.9 %; Mean Corpuscular Hemoglobin 30.7 pg (27-33); Mean Corpuscular Volume 93.3 fL (80-97); Mean Platelet Volume 7.3 fL (7.5-11.2); Nucleated Red Blood Cells % 0.1 /100 WBC (0.0-0.4); Platelet Count 428 10^3/uL (150-450); Potassium 3.8 mmol/L (3.5-5.0); Red Blood Count 3.86 10^6/uL (4.06-5.63); Red Cell Distribution Width 14.4 % (12-17); Sodium 137 mmol/L (135-145)
[2023-02-28 09:31] LABS: Creatinine, Serum < 0.30 mg/dL (0.67-1.17); eGFR CKD-EPI 156.2 (>60)
[2023-02-28] MEDS: fentaNYL PATCH 50 MCG/HR 1 PATCH TRANSDERM SCH (20:20)
[2023-02-28] MEDS: Enoxaparin 40 MG/0.4 ML SYR SUBCUT SCH (21:05)
[2023-03-01] MEDS: fentaNYL Patch Check Q Shift NOTE FOLLOW UP SCH ×3 (07:35→22:58)
[2023-03-01] MEDS: Senna TAB 8.6 mg TAB PO PRN (15:42)
[2023-03-01] MEDS: Enoxaparin 40 MG/0.4 ML SYR SUBCUT SCH (19:50)
[2023-03-02] MEDS: fentaNYL Patch Check Q Shift NOTE FOLLOW UP SCH ×2 (06:59→23:10)
[2023-03-02] MEDS: Enoxaparin 40 MG/0.4 ML SYR SUBCUT SCH (19:27)
[2023-03-03] MEDS: fentaNYL Patch Check Q Shift NOTE FOLLOW UP SCH ×3 (07:06→23:20)
[2023-03-03] MEDS: Enoxaparin 40 MG/0.4 ML SYR SUBCUT SCH (19:29)
[2023-03-03] MEDS: fentaNYL PATCH 50 MCG/HR 1 PATCH TRANSDERM SCH (20:16)
[2023-03-04] MEDS: fentaNYL Patch Check Q Shift NOTE FOLLOW UP SCH ×3 (06:55→23:11)
[2023-03-04] MEDS: Enoxaparin 40 MG/0.4 ML SYR SUBCUT SCH (19:47)
[2023-03-05] MEDS: fentaNYL Patch Check Q Shift NOTE FOLLOW UP SCH ×3 (07:06→21:50)
[2023-03-05] MEDS: Enoxaparin 40 MG/0.4 ML SYR SUBCUT SCH (19:15)
[2023-03-05] MEDS: Senna TAB 8.6 mg TAB PO PRN (20:53)
[2023-03-06] MEDS: fentaNYL Patch Check Q Shift NOTE FOLLOW UP SCH ×2 (07:56→19:14)
[2023-03-06] MEDS: fentaNYL PATCH 50 MCG/HR 1 PATCH TRANSDERM SCH (18:41)
[2023-03-06] MEDS: Enoxaparin 40 MG/0.4 ML SYR SUBCUT SCH (18:44)
[2023-03-06] MEDS: Senna TAB 8.6 mg TAB PO PRN (20:29)
[2023-03-07] MEDS: fentaNYL Patch Check Q Shift NOTE FOLLOW UP SCH ×3 (07:06→23:46)
[2023-03-07 07:08] LABS: ABS Basophils 0.1 10^3/uL (0.0-0.1); ABS Eosinophils 0.6 10^3/uL (0.0-0.5); ABS Lymphocytes 3.4 10^3/uL (1.0-4.8); ABS Monocytes 0.8 10^3/uL (0.0-1.1); ABS Neutrophils 5.8 10^3/uL (1.5-7.6); ABS Nucleated RBC 0.01 10^3/ul; Hematocrit 33.3 % (38-53); Hemoglobin 11.2 g/dL (13.2-16.3); Lymphocyte % 31.6 %; Mean Corpuscular Hemoglobin 31.6 pg (27-33); Mean Corpuscular Hgb Conc 33.8 g/dL (31-36); Mean Corpuscular Volume 93.4 fL (80-97); Nucleated Red Blood Cells % 0.1 /100 WBC (0.0-0.4); Platelet Count 473 10^3/uL (150-450); Red Blood Count 3.56 10^6/uL (4.06-5.63); White Blood Count 10.8 10^3/uL (3.6-10.2)
[2023-03-07 07:28] LABS: Anion Gap 5 mmol/L (2-16); Blood Urea Nitrogen 15 mg/dL (6-24); CO2 Carbon Dioxide 28 mmol/L (22-32); Chloride 105 mmol/L (101-111); Glucose 87 mg/dL (70-100); Sodium 138 mmol/L (135-145); Total Protein 6.4 g/dL (6.4-8.9)
[2023-03-07 07:29] LABS: ALT 72 U/L (7-52); AST 47 U/L (13-39); Albumin 3.5 g/dL (3.2-5.2); Albumin/Globulin Ratio 1.2 (1-3); Alkaline Phosphatase 105 U/L (35-149); Globulin 2.9 g/dL (2-4)
[2023-03-07 07:34] LABS: Creatinine, Serum < 0.30 mg/dL (0.67-1.17); eGFR CKD-EPI 156.2 (>60)
[2023-03-07] MEDS: Enoxaparin 40 MG/0.4 ML SYR SUBCUT SCH (19:52)
[2023-03-07] MEDS: Senna TAB 8.6 mg TAB PO PRN (21:55)
[2023-03-08] MEDS: fentaNYL Patch Check Q Shift NOTE FOLLOW UP SCH ×3 (07:22→22:48)
[2023-03-08] MEDS: Enoxaparin 40 MG/0.4 ML SYR SUBCUT SCH (19:19)
[2023-03-09] MEDS: fentaNYL Patch Check Q Shift NOTE FOLLOW UP SCH ×2 (06:52→23:08)
[2023-03-09] MEDS: fentaNYL PATCH 50 MCG/HR 1 PATCH TRANSDERM SCH (18:30)
[2023-03-09] MEDS: Enoxaparin 40 MG/0.4 ML SYR SUBCUT SCH (19:05)
[2023-03-10] MEDS: fentaNYL Patch Check Q Shift NOTE FOLLOW UP SCH ×4 (06:56→23:12)
[2023-03-10] MEDS: Enoxaparin 40 MG/0.4 ML SYR SUBCUT SCH (18:10)
[2023-03-10] MEDS: Senna TAB 8.6 mg TAB PO PRN (22:07)
[2023-03-11] MEDS: fentaNYL Patch Check Q Shift NOTE FOLLOW UP SCH ×3 (07:00→23:16)
[2023-03-11] MEDS: Enoxaparin 40 MG/0.4 ML SYR SUBCUT SCH (19:02)
[2023-03-11] MEDS: Senna TAB 8.6 mg TAB PO PRN (21:51)
[2023-03-12] MEDS: fentaNYL Patch Check Q Shift NOTE FOLLOW UP SCH ×3 (07:21→18:48)
[2023-03-12] MEDS: fentaNYL PATCH 50 MCG/HR 1 PATCH TRANSDERM SCH (18:31)
[2023-03-12] MEDS: Enoxaparin 40 MG/0.4 ML SYR SUBCUT SCH (19:21)
[2023-03-13] MEDS: fentaNYL Patch Check Q Shift NOTE FOLLOW UP SCH ×2 (06:53→18:58)
[2023-03-13] MEDS: fentaNYL PATCH 50 MCG/HR 1 PATCH TRANSDERM SCH (15:26)
[2023-03-13] MEDS: Enoxaparin 40 MG/0.4 ML SYR SUBCUT SCH (19:04)
[2023-03-14 06:23] LABS: ABS Basophils 0.1 10^3/uL (0.0-0.1); ABS Eosinophils 0.5 10^3/uL (0.0-0.5); ABS Lymphocytes 3.7 10^3/uL (1.0-4.8); ABS Monocytes 0.6 10^3/uL (0.0-1.1); ABS Neutrophils 4.5 10^3/uL (1.5-7.6); ABS Nucleated RBC 0.01 10^3/ul; Eosinophil % 4.8 %; Hematocrit 34.7 % (38-53); Hemoglobin 11.6 g/dL (13.2-16.3); Lymphocyte % 39.5 %; Mean Corpuscular Hemoglobin 30.9 pg (27-33); Mean Corpuscular Hgb Conc 33.5 g/dL (31-36); Mean Corpuscular Volume 92.3 fL (80-97); Mean Platelet Volume 6.9 fL (7.5-11.2); Nucleated Red Blood Cells % 0.1 /100 WBC (0.0-0.4); Platelet Count 473 10^3/uL (150-450); Red Blood Count 3.75 10^6/uL (4.06-5.63); Red Cell Distribution Width 14.8 % (12-17); White Blood Count 9.4 10^3/uL (3.6-10.2)
[2023-03-14 07:00] LABS: Albumin 3.4 g/dL (3.2-5.2); Albumin/Globulin Ratio 1.2 (1-3); Globulin 2.9 g/dL (2-4); Potassium 4.1 mmol/L (3.5-5.0); Total Bilirubin 0.4 mg/dL (0.2-1.0); Total Protein 6.3 g/dL (6.4-8.9)
[2023-03-14] MEDS: fentaNYL Patch Check Q Shift NOTE FOLLOW UP SCH ×3 (07:00→23:32)
[2023-03-14 07:29] LABS: Creatinine, Serum 0.2 mg/dL (0.67-1.17); eGFR CKD-EPI 176.6 (>60)
[2023-03-14] MEDS: Enoxaparin 40 MG/0.4 ML SYR SUBCUT SCH (19:55)
[2023-03-15] MEDS: fentaNYL Patch Check Q Shift NOTE FOLLOW UP SCH ×3 (07:26→23:38)
[2023-03-15] MEDS: fentaNYL PATCH 50 MCG/HR 1 PATCH TRANSDERM SCH (18:26)
[2023-03-15] MEDS: Enoxaparin 40 MG/0.4 ML SYR SUBCUT SCH (18:29)
[2023-03-16] MEDS: fentaNYL Patch Check Q Shift NOTE FOLLOW UP SCH ×3 (07:02→23:09)
[2023-03-16] MEDS: Enoxaparin 40 MG/0.4 ML SYR SUBCUT SCH (18:48)
[2023-03-17] MEDS: fentaNYL Patch Check Q Shift NOTE FOLLOW UP SCH ×4 (06:50→23:16)
[2023-03-17] MEDS: Enoxaparin 40 MG/0.4 ML SYR SUBCUT SCH (18:35)
[2023-03-18] MEDS: fentaNYL Patch Check Q Shift NOTE FOLLOW UP SCH ×2 (06:51→22:55)
[2023-03-18] MEDS: fentaNYL PATCH 50 MCG/HR 1 PATCH TRANSDERM SCH ×2 (15:18→16:55)
[2023-03-18] MEDS: Enoxaparin 40 MG/0.4 ML SYR SUBCUT SCH (18:49)
[2023-03-18] MEDS: Senna TAB 8.6 mg TAB PO PRN (21:30)
[2023-03-19] MEDS: fentaNYL Patch Check Q Shift NOTE FOLLOW UP SCH ×2 (07:02→19:22)
[2023-03-19] MEDS: Enoxaparin 40 MG/0.4 ML SYR SUBCUT SCH (19:46)
[2023-03-20] MEDS: fentaNYL Patch Check Q Shift NOTE FOLLOW UP SCH ×3 (07:03→23:30)
[2023-03-20] MEDS: Enoxaparin 40 MG/0.4 ML SYR SUBCUT SCH (19:35)
[2023-03-21] MEDS: fentaNYL Patch Check Q Shift NOTE FOLLOW UP SCH ×2 (06:56→22:53)
[2023-03-21 07:22] LABS: ABS Basophils 0.1 10^3/uL (0.0-0.1); ABS Eosinophils 0.4 10^3/uL (0.0-0.5); ABS Lymphocytes 3.6 10^3/uL (1.0-4.8); ABS Monocytes 0.8 10^3/uL (0.0-1.1); ABS Neutrophils 5.2 10^3/uL (1.5-7.6); ABS Nucleated RBC 0.01 10^3/ul; Eosinophil % 4.2 %; Hematocrit 36.4 % (38-53); Hemoglobin 12.2 g/dL (13.2-16.3); Lymphocyte % 35.9 %; Mean Corpuscular Hemoglobin 31.7 pg (27-33); Mean Corpuscular Hgb Conc 33.6 g/dL (31-36); Mean Corpuscular Volume 94.3 fL (80-97); Nucleated Red Blood Cells % 0.1 /100 WBC (0.0-0.4); Platelet Count 441 10^3/uL (150-450); Red Blood Count 3.86 10^6/uL (4.06-5.63); Red Cell Distribution Width 15.2 % (12-17); White Blood Count 10.1 10^3/uL (3.6-10.2)
[2023-03-21 07:37] LABS: ALT 38 U/L (7-52); AST 33 U/L (13-39); Albumin 3.8 g/dL (3.2-5.2); Albumin/Globulin Ratio 1.2 (1-3); Alkaline Phosphatase 116 U/L (35-149); Anion Gap 7 mmol/L (2-16); Blood Urea Nitrogen 14 mg/dL (6-24); CO2 Carbon Dioxide 28 mmol/L (22-32); Calcium 9.3 mg/dL (8.6-10.3); Chloride 103 mmol/L (101-111); Globulin 3.3 g/dL (2-4); Glucose 93 mg/dL (70-100); Potassium 3.8 mmol/L (3.5-5.0); Sodium 138 mmol/L (135-145); Total Protein 7.1 g/dL (6.4-8.9)
[2023-03-21 07:43] LABS: Creatinine, Serum < 0.30 mg/dL (0.67-1.17); eGFR CKD-EPI 156.2 (>60)
[2023-03-21] MEDS: fentaNYL PATCH 50 MCG/HR 1 PATCH TRANSDERM SCH ×2 (15:19→17:57)
[2023-03-21] MEDS: Enoxaparin 40 MG/0.4 ML SYR SUBCUT SCH (19:47)
[2023-03-22] MEDS: fentaNYL Patch Check Q Shift NOTE FOLLOW UP SCH ×3 (06:57→23:19)
[2023-03-22] MEDS: Enoxaparin 40 MG/0.4 ML SYR SUBCUT SCH (20:46)
[2023-03-23] MEDS: fentaNYL Patch Check Q Shift NOTE FOLLOW UP SCH ×4 (07:02→23:35)
[2023-03-23] MEDS: Enoxaparin 40 MG/0.4 ML SYR SUBCUT SCH (20:14)
[2023-03-24] MEDS: fentaNYL Patch Check Q Shift NOTE FOLLOW UP SCH ×3 (06:56→23:24)
[2023-03-24] MEDS: fentaNYL PATCH 50 MCG/HR 1 PATCH TRANSDERM SCH (18:45)
[2023-03-24] MEDS: Enoxaparin 40 MG/0.4 ML SYR SUBCUT SCH (19:13)
[2023-03-25] MEDS: fentaNYL Patch Check Q Shift NOTE FOLLOW UP SCH ×3 (07:09→23:36)
[2023-03-25] MEDS: Enoxaparin 40 MG/0.4 ML SYR SUBCUT SCH (20:16)
[2023-03-26] MEDS: fentaNYL Patch Check Q Shift NOTE FOLLOW UP SCH ×2 (07:14→19:14)
[2023-03-26] MEDS: Enoxaparin 40 MG/0.4 ML SYR SUBCUT SCH (19:15)
[2023-03-27] MEDS: fentaNYL Patch Check Q Shift NOTE FOLLOW UP SCH ×2 (07:09→19:00)
[2023-03-27] MEDS: fentaNYL PATCH 50 MCG/HR 1 PATCH TRANSDERM SCH ×2 (14:59→19:04)
[2023-03-27] MEDS: Enoxaparin 40 MG/0.4 ML SYR SUBCUT SCH (19:12)
[2023-03-28] MEDS: fentaNYL Patch Check Q Shift NOTE FOLLOW UP SCH ×3 (06:50→23:34)
[2023-03-28 09:21] LABS: ABS Basophils 0.1 10^3/uL (0.0-0.1); ABS Eosinophils 0.3 10^3/uL (0.0-0.5); ABS Lymphocytes 3.3 10^3/uL (1.0-4.8); ABS Monocytes 0.5 10^3/uL (0.0-1.1); ABS Neutrophils 5.2 10^3/uL (1.5-7.6); ABS Nucleated RBC 0.01 10^3/ul; Eosinophil % 2.9 %; Hematocrit 38.3 % (38-53); Hemoglobin 13.1 g/dL (13.2-16.3); Lymphocyte % 34.8 %; Mean Corpuscular Hemoglobin 31.9 pg (27-33); Mean Corpuscular Hgb Conc 34.1 g/dL (31-36); Mean Corpuscular Volume 93.6 fL (80-97); Mean Platelet Volume 7.1 fL (7.5-11.2); Nucleated Red Blood Cells % 0.1 /100 WBC (0.0-0.4); Platelet Count 406 10^3/uL (150-450); Red Blood Count 4.09 10^6/uL (4.06-5.63); Red Cell Distribution Width 14.9 % (12-17); White Blood Count 9.4 10^3/uL (3.6-10.2)
[2023-03-28 09:45] LABS: ALT 45 U/L (7-52); AST 34 U/L (13-39); Albumin 3.9 g/dL (3.2-5.2); Albumin/Globulin Ratio 1.2 (1-3); Alkaline Phosphatase 122 U/L (35-149); Anion Gap 9 mmol/L (2-16); Blood Urea Nitrogen 14 mg/dL (6-24); CO2 Carbon Dioxide 29 mmol/L (22-32); Calcium 9.6 mg/dL (8.6-10.3); Chloride 101 mmol/L (101-111); Globulin 3.3 g/dL (2-4); Glucose 113 mg/dL (70-100); Potassium 3.4 mmol/L (3.5-5.0); Sodium 139 mmol/L (135-145); Total Protein 7.2 g/dL (6.4-8.9)
[2023-03-28 14:38] LABS: Creatinine, Serum < 0.30 mg/dL (0.67-1.17); eGFR CKD-EPI 156.2 (>60)
[2023-03-28] MEDS: Enoxaparin 40 MG/0.4 ML SYR SUBCUT SCH (20:37)
[2023-03-29] MEDS: fentaNYL Patch Check Q Shift NOTE FOLLOW UP SCH ×3 (07:13→23:36)
[2023-03-29] MEDS: Enoxaparin 40 MG/0.4 ML SYR SUBCUT SCH (21:07)
[2023-03-29] MEDS: fentaNYL PATCH 12 MCG/HR 1 PATCH TRANSDERM SCH (23:32)
[2023-03-29] MEDS: fentaNYL PATCH 25 MCG/HR 1 PATCH TRANSDERM SCH (23:33)
[2023-03-30] MEDS: fentaNYL Patch Check Q Shift NOTE FOLLOW UP SCH ×3 (06:54→23:44)
[2023-03-30] MEDS: Enoxaparin 40 MG/0.4 ML SYR SUBCUT SCH (20:43)
[2023-03-31] MEDS: fentaNYL Patch Check Q Shift NOTE FOLLOW UP SCH ×3 (07:01→23:12)
[2023-03-31 18:26] VITALS: BP 127/85
[2023-03-31] MEDS: Enoxaparin 40 MG/0.4 ML SYR SUBCUT SCH (19:44)
[2023-03-31] MEDS: Senna TAB 8.6 mg TAB PO PRN (22:07)
[2023-04-01] MEDS: fentaNYL Patch Check Q Shift NOTE FOLLOW UP SCH (07:04)
[2023-04-01] MEDS: fentaNYL PATCH 25 MCG/HR 1 PATCH TRANSDERM SCH (13:03)
[2023-04-01] MEDS: fentaNYL PATCH 12 MCG/HR 1 PATCH TRANSDERM SCH (13:04)
== END 2023-04-01 14:20 | disposition home or self-care (01) | DRG 560 ==
LOC: PMRU 14:49
PROVIDERS: ADMIT Physical Medicine & Rehabilitation; ATTEND Physical Medicine & Rehabilitation